=== PATIENT | male | born 1965 | race Caucasian/White ===

== ENCOUNTER 2016-12-26 16:12 | Inpatient (IN) | payer OTHER ==
[2016-12-26] VITALS (7 sets, daily range): BP systolic 131–170; BP diastolic 71–88; PULSE 70–96; RESP 18; TEMP 98–98.4; O2SAT 97–100
[~2016-12-26] VITALS: Ht 177.8 cm; Wt 85.0 kg
--- NOTE | 2016-12-26 16:26 | PD ---
HPI Chief Complaint: Abnormal Results Time Seen by Provider: 16:21 Travel History International Travel<30 days: No Contact w/Intl Traveler<30days: No Traveled to known affect area: No History of Present Illness HPI The patient is a 51-year-old male who presents to the emergency department from [facility], [place] for elevated potassium. The patient states he was recently discharged from [facility] to [facility] [place] secondary to a court order that his had instituted, secondary to him taking one of her morphine tablets. The patient has been at [facility], [place] when they performed laboratory evaluation and noted his potassium is 5.9 and his creatinine was 2.8. The patient does have a history of diabetes, is unsure if he has any history of underlying kidney disorder, does take medications including losartan, amlodipine, and Depakote. The patient denies any current cramping, myalgias, arthralgias, nausea, vomiting, or abdominal pain. The patient states [facility], [place] has discharged him. The patient states his last admission in [place] was for not feeling well. The patient states his creatinine was elevated greater than 3, his baseline, and almost reach 4.0. The patient states they were contemplating dialysis at that time. The patient does have a history of chronic kidney disease. The patient was discharged from [facility] to [facility] [place]. PFSH Past Medical History Narrative Medical Hypertension, diabetes, bipolar affective disorder, chronic kidney disease Past Surgical History Narrative Surgical Ankle surgery, eye surgery Social History Tobacco Use: Yes Substance Use: Yes (marijuana use) Allergies-Medications (Allergen,Severity, Reaction): Coded Allergies: No Known Allergies (Unverified , 12/26/16) Reported Meds & Prescriptions Reported Meds & Active Scripts Active Reported Lorazepam 1 Mg Tab 1 Mg PO Q8H PRN Gabapentin 600 Mg Tab 600 Mg PO TID Trazodone (Trazodone HCl) 300 Mg Tab 300 Mg PO HS Divalproex ER (Divalproex Sodium) 500 Mg Tab 500 Mg PO DAILY Losartan (Losartan Potassium) 25 Mg Tab 25 Mg PO DAILY Bupropion HCl 100 Mg Tab 100 Mg PO BID Review of Systems Except as stated in HPI: all other systems reviewed are Neg General / Constitutional: No: Fever HENT: No: Lightheadedness Cardiovascular: No: Chest Pain or Discomfort Respiratory: No: Shortness of Breath Gastrointestinal: No: Nausea, Vomiting, Abdominal Pain Genitourinary: No: Dysuria, Decreased Urinary Output Musculoskeletal: No: Myalgias, Arthralgias, Weakness Neurologic: No: Dizziness Physical Exam Narrative GENERAL: Awake, alert, pleasant 51-year-old male who appears his stated age and is in no acute respiratory distress. SKIN: Focused skin assessment warm/dry. HEAD: Atraumatic. Normocephalic. EYES: Pupils equal and round. No scleral icterus. No injection or drainage. ENT: No nasal bleeding or discharge. Mucous membranes pink and moist. NECK: Trachea midline. No JVD. CARDIOVASCULAR: Regular rate and rhythm. No murmur appreciated. RESPIRATORY: No accessory muscle use. Clear to auscultation. Breath sounds equal bilaterally. GASTROINTESTINAL: Abdomen soft, non-tender, nondistended. No rebound tenderness. MUSCULOSKELETAL: No obvious deformities. No clubbing. No cyanosis. No edema. NEUROLOGICAL: Awake and alert. No obvious cranial nerve deficits. Motor grossly within normal limits. Normal speech. PSYCHIATRIC: Appropriate mood and affect; insight and judgment normal. Data Data Last Documented VS Vital Signs Date Time Temp Pulse Resp B/P Pulse Ox O2 Delivery O2 Flow Rate FiO2 12/26/16 16:20 98.0 70 18 131/88 100 Orders Electrocardiogram (12/26/16 16:21) Complete Blood Count With Diff (12/26/16 16:21) Comprehensive Metabolic Panel (12/26/16 16:21) Magnesium (Mg) (12/26/16 16:21) Urinalysis - C+S If Indicated (12/26/16 16:21) Ecg Monitoring (12/26/16 16:21) Oximetry (12/26/16 16:21) Sodium Chlor 0.9% 1000 Ml Inj (Ns 1000 M (12/26/16 16:30) Valproic Acid (Depakene) (12/26/16 16:26) Potassium, Serum (K) (12/26/16 20:43) Insulin Human Regular Inj (Novolin R Inj (12/26/16 18:00) Dextrose 50% In Cornelius (Vial) Inj (D50w (Vi (12/26/16 17:45) Sodium Bicarbonate 8.4% Inj (Sodium Bica (12/26/16 17:45) Sodium Polysty Sulfate Liq (Kayexalate L (12/26/16 17:45) Admit Order (Ed Use Only) (12/26/16 18:04) Labs Laboratory Tests Test 12/26/16 16:50 White Blood Count 5.0 TH/MM3 Red Blood Count 2.67 MIL/MM3 Hemoglobin 8.4 GM/DL Hematocrit 24.4 % Mean Corpuscular Volume 91.6 FL Mean Corpuscular Hemoglobin 31.4 PG Mean Corpuscular Hemoglobin 34.2 % Concent Red Cell Distribution Width 15.1 % Platelet Count 206 TH/MM3 Mean Platelet Volume 8.0 FL Neutrophils (%) (Auto) 59.3 % Lymphocytes (%) (Auto) 25.8 % Monocytes (%) (Auto) 11.3 % Eosinophils (%) (Auto) 3.0 % Basophils (%) (Auto) 0.6 % Neutrophils # (Auto) 2.9 TH/MM3 Lymphocytes # (Auto) 1.3 TH/MM3 Monocytes # (Auto) 0.6 TH/MM3 Eosinophils # (Auto) 0.2 TH/MM3 Basophils # (Auto) 0.0 TH/MM3 CBC Comment DIFF FINAL Differential Comment Sodium Level 142 MEQ/L Potassium Level 5.8 MEQ/L Chloride Level 112 MEQ/L Carbon Dioxide Level 24.8 MEQ/L Anion Gap 5 MEQ/L Blood Urea Nitrogen 52 MG/DL Creatinine 2.98 MG/DL Estimat Glomerular Filtration 22 ML/MIN Rate Random Glucose 78 MG/DL Calcium Level 7.6 MG/DL Magnesium Level 2.7 MG/DL Total Bilirubin 0.1 MG/DL Aspartate Amino Transf 21 U/L (AST/SGOT) Alanine Aminotransferase 36 U/L (ALT/SGPT) Alkaline Phosphatase 69 U/L Total Protein 5.5 GM/DL Albumin 2.4 GM/DL Valproic Acid (Depakene) Level 22 MCG/ML [facility] Medical Decision Making Medical Screen Exam Complete: Yes Emergency Medical Condition: Yes Medical Record Reviewed: Yes Interpretation(s) EKG reveals sinus rhythm with a rate of 71. Q wave noted in lead 3 and aVF. Elevated T waves noted in V2 and V3, not seen in V4/V5. Laboratory Tests Test 12/26/16 16:50 White Blood Count 5.0 TH/MM3 Red Blood Count 2.67 MIL/MM3 Hemoglobin 8.4 GM/DL Hematocrit 24.4 % Mean Corpuscular Volume 91.6 FL Mean Corpuscular Hemoglobin 31.4 PG Mean Corpuscular Hemoglobin 34.2 % Concent Red Cell Distribution Width 15.1 % Platelet Count 206 TH/MM3 Mean Platelet Volume 8.0 FL Neutrophils (%) (Auto) 59.3 % Lymphocytes (%) (Auto) 25.8 % Monocytes (%) (Auto) 11.3 % Eosinophils (%) (Auto) 3.0 % Basophils (%) (Auto) 0.6 % Neutrophils # (Auto) 2.9 TH/MM3 Lymphocytes # (Auto) 1.3 TH/MM3 Monocytes # (Auto) 0.6 TH/MM3 Eosinophils # (Auto) 0.2 TH/MM3 Basophils # (Auto) 0.0 TH/MM3 CBC Comment DIFF FINAL Differential Comment Sodium Level 142 MEQ/L Potassium Level 5.8 MEQ/L Chloride Level 112 MEQ/L Carbon Dioxide Level 24.8 MEQ/L Anion Gap 5 MEQ/L Blood Urea Nitrogen 52 MG/DL Creatinine 2.98 MG/DL Estimat Glomerular Filtration 22 ML/MIN Rate Random Glucose 78 MG/DL Calcium Level 7.6 MG/DL Magnesium Level 2.7 MG/DL Total Bilirubin 0.1 MG/DL Aspartate Amino Transf 21 U/L (AST/SGOT) Alanine Aminotransferase 36 U/L (ALT/SGPT) Alkaline Phosphatase 69 U/L Total Protein 5.5 GM/DL Albumin 2.4 GM/DL Valproic Acid (Depakene) Level 22 MCG/ML Differential Diagnosis Differential diagnosis includes hyperkalemia, lab error with hemolysis, acute kidney injury, acute renal failure, obstructive uropathy, medication side effect. Narrative Course IV was established, labs are drawn and sent, and the patient was placed on cardiac telemetry monitoring and continuous pulse oximetry monitoring. EKG was ordered and interpreted. The patient was administered 1 L of IV fluids. The patient's potassium was elevated at 5.8, no evidence of hemolysis. Creatinine is elevated at 2.98, appears to be baseline. The patient was administered insulin, D50, bicarbonate, and Kayexalate. The patient will need 23 hour observation for reevaluation of the potassium in the morning and may need his losartan changed. The patient is on losartan for kidney protection, however, now has recurrent hyperkalemia. The patient will be 23 hour observation [facility]. Physician Communication Physician Communication [facility] hour observation. I discussed the patient with Dr. Blankenship who agrees with 23 hour observation. Diagnosis Primary Impression: Hyperkalemia Additional Impression: Chronic kidney disease Qualified Code: N18.4 - Stage 4 chronic kidney disease Admitting Information Admitting Physician Requests: Observation Condition: Stable Chino Guzman MD December 26, 2016 16:26
[2016-12-26] MEDS ORDERED: SODIUM CHLOR 0.9% 1000 ML INJ 1,000 ML IV ONE (16:30)
[2016-12-26 17:07] LABS: AUTOMATED NEUTROPHIL # 2.9 TH/MM3 (1.8-7.7); BASOPHIL % 0.6 % (0.0-2.0); EOSINOPHIL # 0.2 TH/MM3 (0-0.4); HEMATOCRIT 24.4 % (39.0-51.0); HEMO FLAGS DIFF FINAL; LYMPH % 25.8 % (9.0-44.0); LYMPHOCYTE # 1.3 TH/MM3 (1.0-4.8); MEAN CELL VOLUME 91.6 FL (80.0-100.0); MEAN CORPUSCULAR HEMOGLOBIN 31.4 PG (27.0-34.0); MEAN CORPUSCULAR HGB CONC 34.2 % (32.0-36.0); MONO % 11.3 % (0.0-8.0); NEUT % 59.3 % (16.0-70.0); PLATELET COUNT 206 TH/MM3 (150-450); RED BLOOD COUNT 2.67 MIL/MM3 (4.50-5.90); RED CELL DISTRIBUTION WIDTH 15.1 % (11.6-17.2)
[2016-12-26] MEDS ORDERED: TRAZ300T2 PO (17:19)
[2016-12-26] MEDS ORDERED: LOSA25TA PO (17:19)
[2016-12-26] MEDS ORDERED: DIVA500T3 PO (17:19)
[2016-12-26] MEDS ORDERED: BUPR100T4 PO (17:19)
[2016-12-26] MEDS ORDERED: GABA600T PO (17:19)
[2016-12-26] MEDS ORDERED: LORA1TAB12 PO (17:19)
[2016-12-26 17:33] LABS: ANION GAP 5 MEQ/L (5-15); AST (GOT) 21 U/L (15-37); BICARBONATE 24.8 MEQ/L (21.0-32.0); BLOOD UREA NITROGEN 52 MG/DL (7-18); CHLORIDE 112 MEQ/L (98-107); GLOMERULAR FILTRATION RATE 22 ML/MIN (>89); MAGNESIUM 2.7 MG/DL (1.5-2.5); POTASSIUM 5.8 MEQ/L (3.5-5.1); SODIUM (NA) 142 MEQ/L (136-145)
[2016-12-26 17:37] LABS: ALKALINE PHOSPHATASE 69 U/L (45-117); ALT (GPT) 36 U/L (12-78); TOTAL BILIRUBIN ADULT 0.1 MG/DL (0.2-1.0)
[2016-12-26] MEDS ORDERED: DEXTROSE 50% IN WATER 50 ML VIAL(D50) IV PUSH ONE (17:45)
[2016-12-26] MEDS ORDERED: SODIUM BICARBONATE 8.4% SOLN 50 MEQ/50 ML VIAL SLOW IVP ONE (17:45)
[2016-12-26] MEDS ORDERED: SODIUM POLYSTYRENE SULFONATE SUSP 15 GM/60 ML CUP PO ONE (17:45)
[2016-12-26] MEDS ORDERED: INSULIN HUMAN REGULAR 1,000 UNITS/10 ML VIAL IV PUSH ONE (18:00)
[2016-12-26] MEDS ORDERED: SODIUM BICARBONATE 8.4% INJ 50 MEQ/50 ML SYR IV PUSH ONE (18:30)
[2016-12-26 18:34] LABS: BACTERIA, URINE OCC /hpf; BLOOD, URINE NEG (NEG); COMMENT (UR) CULT NOT INDICATED; CULTURE IF INDICATED CULT NOT INDICATED; GLUCOSE,URINE NEG (NEG); KETONE, URINE NEG (NEG); NITRITE,URINE NEG (NEG); PH, URINE 5.5 (5.0-8.5); SQUAMOUS EPITHELIAL CELL URINE <1 /hpf (0-5); URINE COLOR YELLOW (YELLW/STRAW)
[2016-12-26] MEDS ORDERED: SODIUM CHLOR 0.9% 1000 ML INJ 1,000 ML IV SCH (19:33)
[2016-12-26] MEDS ORDERED: NALOXONE HCL 0.4 MG/ML AMP IV PRN (19:45)
[2016-12-26] MEDS ORDERED: SODIUM CHLORIDE 0.9% FLUSH 10 ML FLUSH IV FLUSH PRN (19:45)
[2016-12-26] MEDS ORDERED: ONDANSETRON HCL 4 MG/2 ML VIAL IVP PRN (19:45)
--- NOTE | 2016-12-26 20:55 | HHI.HP ---
[facility] Primary Care Physician [facility] Admission Diagnosis hyperkalemia, chronic kidney disease Diagnoses: Chief Complaint: hyperkalemia Travel History International Travel<30 Days: No Contact w/Intl Traveler <30 Da: No Traveled to Known Affected Are: No History of Present Illness The patient is a 51-year-old male with a past medical history which includes hypertension, diabetes mellitus, bipolar with depression. Patient is on Depakote as well as gabapentin reports he takes these for his bipolar not for seizure disorder. Patient presents to the emergency department today from [facility] for evaluation of elevated potassium and elevated creatine. Patient reports he was recently discharged from [facility] to [facility] secondary to a court order that his had instituted, secondary to him taking one of her morphine tablets. The patient has been at [facility] when they performed laboratory evaluation and noted his elevated potassium and creatinine. Patient reports while he was in the hospital possibly 2 weeks ago they, "almost," had to start dialysis secondary to Anuria x 2 days. Patient reports he was first told that he had, "kidney issues," 6 months to a year ago. Patient also reports bilateral lower extremity edema for the past 6 months. Patient reports he has not been followed by an outpatient commutator operator. Patient reports he see a PCP through the [facility] in [place] does not recall the name. Only new medications reported are Wellbutrin and Xanax. The patient denies any current cramping, myalgias, arthralgias, nausea, vomiting, abdominal pain palpitations, chest pain or shortness of breath. EKG reviewed and reveals sinus rhythm 71 bpm. Initial laboratory data reviewed potassium 5.8 BUN 52 creatinine 2.98, estimated GFR 22, hemoglobin 8.4 with hematocrit 24.4 Review of Systems ROS Limitations: Poor Historian Except as stated in HPI: all other systems reviewed are Neg Past Family Social History Past Medical History HTN, DM, Bipolar with depression Past Surgical History Left Elbow and right foot, and bilateral cataract surgery Reported Medications Lorazepam 1 Mg Tab 1 Mg PO Q8H PRN Gabapentin 600 Mg Tab 600 Mg PO TID Trazodone (Trazodone HCl) 300 Mg Tab 300 Mg PO HS Divalproex ER (Divalproex Sodium) 500 Mg Tab 500 Mg PO DAILY Losartan (Losartan Potassium) 25 Mg Tab 25 Mg PO DAILY Bupropion HCl 100 Mg Tab 100 Mg PO BID Allergies: Coded Allergies: No Known Allergies (Unverified , 12/26/16) Active Ordered Medications Current Medications Medications (Trade) Dose Ordered Sig/Kesha Route Start Time Stop Time Status Last Admin (NS 1000 ml Inj) 1,000 ml @ 100 mls/hr Q10H IV 12/26/16 19:33 12/27/16 05:32 12/26/16 21:29 (NS Flush) 2 ml UNSCH PRN IV FLUSH 12/26/16 19:45 (NS Flush) 2 ml BID IV FLUSH 12/26/16 21:00 12/26/16 21:29 (Tylenol) 650 mg Q4H PRN PO 12/26/16 19:45 (Zofran Inj) 4 mg Q6H PRN IVP 12/26/16 19:45 (Narcan Inj) 0.4 mg UNSCH PRN IV 12/26/16 19:45 (Wellbutrin) 100 mg BID PO 12/26/16 21:00 12/26/16 21:29 (Depakote Er) 500 mg DAILY PO 12/27/16 09:00 (Neurontin) 600 mg TID PO 12/27/16 09:00 (Ativan) 1 mg Q8H PRN PO 12/26/16 20:45 (Desyrel) 300 mg HS PO 12/26/16 21:00 12/26/16 21:29 (D50w (Vial) Inj) 25 ml UNSCH PRN IV PUSH 12/26/16 21:00 (Glucagon Inj) 1 mg UNSCH PRN OTHER 12/26/16 21:00 Family History Patient reports he is adopted and does not know family medical history Social History ETOH- denies tobacco smoked 1 PPD since age 28- quit 10 days ago Marijuana, denies other illicit drug use Physical Exam Vital Signs Vital Signs Date Time Temp Pulse Resp B/P Pulse Ox O2 Delivery O2 Flow Rate FiO2 12/26/16 19:02 81 18 169/84 100 Room Air 12/26/16 18:46 77 18 170/71 98 12/26/16 18:39 97 12/26/16 16:20 98.0 70 18 131/88 100 Physical Exam GENERAL: This is a well-nourished, well-developed patient. SKIN: Sole of right foot dry wound a quarter size scabbed HEAD: Atraumatic. Normocephalic. No temporal or scalp tenderness. EYES: Extraocular motions intact. No scleral icterus. No injection or drainage. CARDIOVASCULAR: Regular rate and rhythm without murmurs, gallops, or rubs. RESPIRATORY: Clear to auscultation. Breath sounds equal bilaterally. No wheezes , rales, or rhonchi. GASTROINTESTINAL: Abdomen soft, non-tender, nondistended. No guarding. MUSCULOSKELETAL: Trace bilateral lower extremity edema No joint tenderness, effusion, or edema noted. No calf tenderness. Negative Homans sign bilaterally. NEUROLOGICAL: Awake and alert. Motor and sensory grossly within normal limits. Five out of 5 muscle strength in all muscle groups. Normal speech. Laboratory Laboratory Tests Test 12/26/16 12/26/16 16:50 18:00 White Blood Count 5.0 Red Blood Count 2.67 Hemoglobin 8.4 Hematocrit 24.4 Mean Corpuscular Volume 91.6 Mean Corpuscular Hemoglobin 31.4 Mean Corpuscular Hemoglobin 34.2 Concent Red Cell Distribution Width 15.1 Platelet Count 206 Mean Platelet Volume 8.0 Neutrophils (%) (Auto) 59.3 Lymphocytes (%) (Auto) 25.8 Monocytes (%) (Auto) 11.3 Eosinophils (%) (Auto) 3.0 Basophils (%) (Auto) 0.6 Neutrophils # (Auto) 2.9 Lymphocytes # (Auto) 1.3 Monocytes # (Auto) 0.6 Eosinophils # (Auto) 0.2 Basophils # (Auto) 0.0 CBC Comment DIFF FINAL Differential Comment Sodium Level 142 Potassium Level 5.8 Chloride Level 112 Carbon Dioxide Level 24.8 Anion Gap 5 Blood Urea Nitrogen 52 Creatinine 2.98 Estimat Glomerular Filtration 22 Rate Random Glucose 78 Calcium Level 7.6 Magnesium Level 2.7 Total Bilirubin 0.1 Aspartate Amino Transf 21 (AST/SGOT) Alanine Aminotransferase 36 (ALT/SGPT) Alkaline Phosphatase 69 Total Protein 5.5 Albumin 2.4 Valproic Acid (Depakene) Level 22 Urine Color YELLOW Urine Turbidity CLEAR Urine pH 5.5 Urine Specific Jerome 1.015 Urine Protein 100 Urine Glucose (UA) NEG Urine Ketones NEG Urine Occult Blood NEG Urine Nitrite NEG Urine Bilirubin NEG Urine Urobilinogen LESS THAN 2.0 Urine Leukocyte Esterase NEG Urine RBC LESS THAN 1 Urine WBC 2 Urine Squamous Epithelial <1 Cells Urine Bacteria OCC Microscopic Urinalysis Comment CULT NOT INDICATED Result Diagram: 12/26/16 1650 12/26/16 1650 Assessment and Plan Problem List: (1) Hyperkalemia ICD Code: E87.5 Status: Acute Assessment and Plan The patient is a 51-year-old male with a past medical history which includes hypertension, diabetes mellitus, bipolar with depression. Patient is on Depakote as well as gabapentin reports he takes these for his bipolar not for seizure disorder. Patient presents to the emergency department today from [facility] for evaluation of elevated potassium and elevated creatine. Patient reports while he was in the hospital possibly 2 weeks ago they , "almost," had to start dialysis secondary to Anuria x 2 days. Patient reports he was first told that he had, "kidney issues," 6 months to a year ago. Initial laboratory data reviewed potassium 5.8 BUN 52 creatinine 2.98, estimated GFR 22, hemoglobin 8.4 with hematocrit 24.4 Acute kidney injury versus chronic kidney disease Normal saline at 100 cc/h 1 L Recheck BMP in a.m. Consult nephrology patient does not follow with outpatient commutator operator Renal ultrasound ordered and pending Hyperkalemia Patient given sodium bicarbonate, insulin as well as Kayexalate emergency department Recheck potassium pending Hypertension Hold losartan in light of kidney function Monitor blood pressure trend Bipolar continue home medication including divalproex, gabapentin, trazodone and bupropion Diabetes mellitus Start Accu-Cheks before meals at bedtime with low-dose sliding scale insulin coverage DVT prophylaxis with heparin and SCDs Discussed with ER provider, nursing and patient Written by Susy Gonsalez, acting as scribe for Dr. Siddiqi on 12/26/16 at 22 :31. Susy Gonsalez December 26, 2016 20:55
[2016-12-26] MEDS ORDERED: DEXTROSE 50% IN WATER 50 ML VIAL(D50) IV PUSH PRN (21:00)
[2016-12-26] MEDS ORDERED: GLUCAGON 1 MG/ML VIAL OTHER PRN (21:00)
[2016-12-26] MEDS: INSULIN ASPART SUPPLEMENTAL SCALE SQ SCH (21:00)
[2016-12-26] MEDS: buPROPion HCL 100 MG TAB PO SCH (21:29)
[2016-12-26] MEDS: SODIUM CHLORIDE 0.9% FLUSH 10 ML FLUSH IV FLUSH SCH (21:29)
[2016-12-26] MEDS: traZODone HCL 100 MG TAB PO SCH (21:29)
--- NOTE | 2016-12-26 23:44 | RADRPT ---
EXAM DATE/TIME: 12/26/2016 23:09 [facility] COMPARISON: No previous studies available for comparison. INDICATIONS : Increased BUN/Creatinine. MEDICAL HISTORY : Hypercholesterolemia. Hypertension. Asthma. Sleep apnea. Diabetes. Depression. Anxiety. SURGICAL HISTORY : Left ankle surgery. Left elbow surgery. Bilateral cataract removal. ENCOUNTER: Initial ACUITY: 1 day PAIN SCORE: 4/10 LOCATION: Bilateral flank MEASUREMENTS: RIGHT KIDNEY: 12.6 x 6.8 x 6.0 cm LEFT KIDNEY: 13.5 x 6.1 x 5.4 cm FINDINGS: RIGHT KIDNEY: Renal cortex is normal in thickness and echotexture. No hydronephrosis, stone, or mass. LEFT KIDNEY: Renal cortex is normal in thickness and echotexture. No hydronephrosis, stone, or mass. BLADDER: Within normal limits given the degree of distension. CONCLUSION: Normal examination. Eddie Salguero Jr., MD on December 26, 2016 at 23:42 Board Certified Radiologist. This report was verified electronically.
[2016-12-27] VITALS (9 sets, daily range): BP systolic 119–177; BP diastolic 59–83; PULSE 70–96; RESP 18–20; TEMP 97.9–99; O2SAT 95–100
[2016-12-27] MEDS: INSULIN ASPART SUPPLEMENTAL SCALE SQ SCH ×4 (06:14→20:59)
[2016-12-27 07:04] LABS: AUTOMATED NEUTROPHIL # 3.8 TH/MM3 (1.8-7.7); BASOPHIL % 0.3 % (0.0-2.0); EOSINOPHIL # 0.1 TH/MM3 (0-0.4); EOSINOPHIL % 1.8 % (0.0-4.0); HEMATOCRIT 22.1 % (39.0-51.0); HEMO FLAGS DIFF FINAL; LYMPH % 19.7 % (9.0-44.0); LYMPHOCYTE # 1.1 TH/MM3 (1.0-4.8); MEAN CELL VOLUME 89.9 FL (80.0-100.0); MEAN CORPUSCULAR HEMOGLOBIN 30.7 PG (27.0-34.0); MEAN CORPUSCULAR HGB CONC 34.1 % (32.0-36.0); MONO % 9.1 % (0.0-8.0); NEUT % 69.1 % (16.0-70.0); PLATELET COUNT 178 TH/MM3 (150-450); RED BLOOD COUNT 2.46 MIL/MM3 (4.50-5.90); RED CELL DISTRIBUTION WIDTH 14.4 % (11.6-17.2); WHITE BLOOD COUNT 5.6 TH/MM3 (4.0-11.0)
[2016-12-27 07:40] LABS: BICARBONATE 24.2 MEQ/L (21.0-32.0); POTASSIUM 5.2 MEQ/L (3.5-5.1)
[2016-12-27] MEDS ORDERED: SODIUM POLYSTYRENE SULFONATE SUSP 15 GM/60 ML CUP PO ONE (09:45)
[2016-12-27] MEDS: DIVALPROEX SODIUM E.R. 500 MG TAB PO SCH (10:35)
[2016-12-27] MEDS: SODIUM CHLORIDE 0.9% FLUSH 10 ML FLUSH IV FLUSH SCH ×2 (10:35→20:54)
[2016-12-27] MEDS: GABAPENTIN 300 MG CAP PO SCH ×3 (10:35→20:54)
[2016-12-27] MEDS: buPROPion HCL 100 MG TAB PO SCH ×2 (10:35→20:54)
[2016-12-27] MEDS: LORazepam 1 MG TAB PO PRN (10:45)
--- NOTE | 2016-12-27 11:14 | HHI.PR ---
Subjective Remarks Follow-up for hyperkalemia. Patient complaining of his chronic tremors that he had for over a year. He stated that tremors are worsened with stress. He said that sometimes is difficult for him to eat because of tremors. Patient denies any visual changes, headache, or any focal neurological deficits. Patient has good urine output. Denies any chest pain, shortness of breathing, or palpitations. Objective Vitals Vital Signs Date Time Temp Pulse Resp B/P Pulse Ox O2 Delivery O2 Flow Rate FiO2 12/27/16 11:03 98.5 86 18 160/77 97 12/27/16 07:29 98.8 89 18 177/83 98 12/27/16 07:09 99 21 12/27/16 03:59 98.7 92 18 172/80 99 12/26/16 22:17 96 12/26/16 21:53 98.4 78 18 147/78 97 12/26/16 20:00 100 12/26/16 19:02 81 18 169/84 100 Room Air 12/26/16 18:46 77 18 170/71 98 12/26/16 18:39 97 12/26/16 16:20 98.0 70 18 131/88 100 I/O 12/26/16 12/26/16 12/26/16 12/27/16 12/27/16 12/27/16 07:00 15:00 23:00 07:00 15:00 23:00 Intake Total 902 ml 200 ml Output Total 500 ml 1300 ml Balance 402 ml -1100 ml Intake Oral 602 ml IV Total 300 ml 200 ml Output Urine Total 500 ml 1300 ml # Voids 1 2 Result Diagram: 12/27/16 0608 12/27/16 0608 Objective Remarks GENERAL: in NAD CARDIOVASCULAR: Regular rate and rhythm without murmurs, gallops, or rubs. RESPIRATORY: Breath sounds equal bilaterally. No accessory muscle use. GASTROINTESTINAL: Abdomen soft, non-tender, nondistended. MUSCULOSKELETAL: No cyanosis, or edema. BACK: Nontender without obvious deformity. No CVA tenderness. Medications and IVs Current Medications Sodium Chloride (NS 1000 ml Inj) 1,000 ml @ 999 mls/hr BOLUS ONCE IV Last administered on 12/26/16t 17:00; Start 12/26/16 at 16:30; Stop 12/26/16 at 17:30; Status DC Insulin Human Regular (NovoLIN R INJ) 10 units ONCE ONCE IV PUSH Last administered on 12/26/16 18:28; Start 12/26/16 at 18:00; Stop 12/26/16 at 18:01; Status DC Dextrose (D50w (Vial) Inj) 50 ml ONCE ONCE IV PUSH Last administered on 18:24; Start 12/26/16 at 17:45; Stop 12/26/16 at 17:46; Status DC Sodium Bicarbonate (Sodium Bicarbonate 8.4% Inj) 50 meq ONCE ONCE SLOW IVP ; Start 12/26/16 at 17:45; Stop 12/26/16 at 17:46; Status DC Sodium Polystyrene Sulfonate (Kayexalate Liq) 15 gm ONCE ONCE PO Last administered on 12/26/16 18:33; Start 12/26/16 at 17:45; Stop 12/26/16 at 17:46; Status DC Sodium Bicarbonate 50 meq 50 meq ONCE ONCE IV PUSH Last administered on 18:34; Start 12/26/16 at 18:30; Stop 12/26/16 at 18:31; Status DC Sodium Chloride (NS 1000 ml Inj) 1,000 ml @ 100 mls/hr Q10H IV Last administered on 12/26/16 21:29; Start 12/26/16 at 19:33; Stop 12/27/16 at 05:32; Status DC Sodium Chloride (NS Flush) 2 ml UNSCH PRN IV FLUSH FLUSH AFTER USING IV ACCESS ; Start 12/26/16 at 19:45 Sodium Chloride (NS Flush) 2 ml BID IV FLUSH Last administered on 12/27/16 10: 35; Start 12/26/16 at 21:00 Acetaminophen (Tylenol) 650 mg Q4H PRN PO TEMP > 100.4; Start 12/26/16 at 19:45 Ondansetron HCl (Zofran Inj) 4 mg Q6H PRN IVP NAUSEA OR VOMITING; Start at 19:45 Naloxone HCl (Narcan Inj) 0.4 mg UNSCH PRN IV SEE LABEL COMMENTS; Start at 19:45 Bupropion HCl (Wellbutrin) 100 mg BID PO Last administered on 12/27/16 10:35; Start 12/26/16 at 21:00 Divalproex Sodium (Depakote Er) 500 mg DAILY PO Last administered on 12/27/16 10:35; Start 12/27/16 at 09:00 Gabapentin (Neurontin) 600 mg TID PO Last administered on 12/27/16 10:35; Start 12/27/16 at 09:00 Lorazepam (Ativan) 1 mg Q8H PRN PO ANXIETY Last administered on 12/27/16 10:45 ; Start 12/26/16 at 20:45 Trazodone HCl (Desyrel) 300 mg HS PO Last administered on 12/26/16 21:29; Start 12/26/16 at 21:00 Dextrose (D50w (Vial) Inj) 25 ml UNSCH PRN IV PUSH HYPOGLYCEMIA-SEE COMMENTS; Start 12/26/16 at 21:00 Glucagon (Glucagon Inj) 1 mg UNSCH PRN OTHER HYPOGLYCEMIA-SEE COMMENTS; Start 12/26/16 at 21:00 Insulin Aspart (NovoLOG SUPPLEMENTAL SCALE) 1 ACHS SLIDING SCALE SQ ; Start 12/26/16 at 21:00 Sodium Polystyrene Sulfonate (Kayexalate Liq) 15 gm ONCE ONCE PO Last administered on 12/27/16 10:34; Start 12/27/16 at 09:45; Stop 12/27/16 at 09:46; Status DC A/P Problem List: (1) Hyperkalemia ICD Code: E87.5 Status: Acute Assessment and Plan The patient is a 51-year-old male with a past medical history which includes hypertension, diabetes mellitus, bipolar with depression. Patient is on Depakote as well as gabapentin reports he takes these for his bipolar not for seizure disorder. Patient presents to the emergency department today from [facility] for evaluation of elevated potassium and elevated creatine. Patient reports while he was in the hospital possibly 2 weeks ago they , "almost," had to start dialysis secondary to Anuria x 2 days. Patient reports he was first told that he had, "kidney issues," 6 months to a year ago. Initial laboratory data reviewed potassium 5.8 BUN 52 creatinine 2.98, estimated GFR 22, hemoglobin 8.4 with hematocrit 24.4 Acute kidney injury versus chronic kidney disease -Patient was given normal saline at 100 cc/h. Creatinine/GFR improved. -Computer Networking Instructor Adjunct consulted. Pending recommendations. -Avoid nephrotoxins. Hyperkalemia -s/p sodium bicarbonate, insulin as well as Kayexalate emergency department and potassium improved to 5.2. -No events over telemetry. Will give another dose of Kayexalate pending recommendations from piano maker. -Patient will need a low potassium diet. Hypertension -Losartan was held secondary to kidney disease. -His blood pressure is elevated so will start amlodipine. Bipolar -continue home medication including divalproex, gabapentin, trazodone and bupropion Diabetes mellitus -Currently on insulin sliding scale. Chronic tremors -Most likely secondary to benign familial essential tremors. -Patient total follow up with his PCP for further evaluation. This has been chronic for 1 year and there are no acute issues at the moment. DVT prophylaxis with heparin and SCDs Discharge Planning Pending recommendations from piano maker. Maggie Blankenship MD December 27, 2016 11:14
[2016-12-27] MEDS ORDERED: TRAZ100T4 PO (11:39)
--- NOTE | 2016-12-27 14:06 | PD.CONS ---
[facility] Service Nephrology Consult Requested By Makayla Gonsalez Reason for Consult Acute on Chronic Renal Decline Primary Care Physician [facility] History of Present Illness The patient is a 51 yo [place] male who was sent by 12/26/16 after labs showed an elevated K+ at 5.8 and SCr at 2.98. The patient was Tapia Acted recently by his after she found that he was taking her prescribed Morphine. He is a questionable historian, but says that he was recently admitted at [facility] in [place] for "falling out" and was told at that time that his kidney functions were so impaired that he may have to require dialysis. Prior to this, says [facility] have [facility] insufficiency about 6 months ago, but is uncertain of his baseline status. Is a type 1 diabetic and admits that he is not compliant. Has had complications from his diabetes including retinopathy and neuropathy. Is unaware of any hx of proteinuria. He is also hypertensive for many years. Denies any hx of collagen vascular disease, urological obstructions, prostatic issues. He mentions he had an AR some time ago, but no known CHF hx. In the past 2 weeks, was started on Bupropion and Xanax by [facility]. Has been on Gabapentin, Depakote, and Losartan for the past 6 months or so. Keeps saying he is "falling out" but is unable to elaborate what that means besides saying he is tremoring in his R hand with sporadic jerking movements. Denies any NVDC. No NSAID use. No urinary issues. Admitting SCr 2.98 that improved to 2.44 at consult. K+ was 5.8 that improved to 5.2. Alb of 2.4 with 1+ proteinuria on UA. Hgb at 7.5. Renal US shows normal echogenicity without hydro or obstruction. UOP at 1800mL Labs predating admission not available to me at the present. 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 HTN CAD s/p AR Bipolar Disorder Depression Hx of MRSA infection Past Surgical History L elbow MRSA debridement R foot same Cataract repair Potential retinal laser treatment Reported Medications Reported Meds & Active Scripts Active Reported Lorazepam 1 Mg Tab 1 Mg PO Q8H PRN Gabapentin 600 Mg Tab 1,200 Mg PO TID Trazodone (Trazodone HCl) 300 Mg Tab 300 Mg PO HS Divalproex ER (Divalproex Sodium) 500 Mg Tab 500 Mg PO DAILY Losartan (Losartan Potassium) 25 Mg Tab 25 Mg PO DAILY Bupropion HCl 100 Mg Tab 100 Mg PO BID Active Ordered Medications Current Medications Medications (Trade) Dose Ordered Sig/Kesha Route Start Time Stop Time Status Last Admin (NS Flush) 2 ml UNSCH PRN IV FLUSH 12/26/16 19:45 (NS Flush) 2 ml BID IV FLUSH 12/26/16 21:00 12/27/16 10:35 (Tylenol) 650 mg Q4H PRN PO 12/26/16 19:45 (Zofran Inj) 4 mg Q6H PRN IVP 12/26/16 19:45 (Narcan Inj) 0.4 mg UNSCH PRN IV 12/26/16 19:45 (Wellbutrin) 100 mg BID PO 12/26/16 21:00 12/27/16 10:35 (Depakote Er) 500 mg DAILY PO 12/27/16 09:00 12/27/16 10:35 (Neurontin) 600 mg TID PO 12/27/16 09:00 12/27/16 13:19 (Ativan) 1 mg Q8H PRN PO 12/26/16 20:45 12/27/16 10:45 (Desyrel) 300 mg HS PO 12/26/16 21:00 12/26/16 21:29 (D50w (Vial) Inj) 25 ml UNSCH PRN IV PUSH 12/26/16 21:00 (Glucagon Inj) 1 mg UNSCH PRN OTHER 12/26/16 21:00 (Norvasc) 10 mg DAILY PO 12/27/16 11:15 12/27/16 11:36 Family History Is adopted so unknown Social History Denies EtOH Tobacco use of 1ppd (quit 10 days ago) Marijuana use Hx of IVDA of methamphetamines with last use 1 year ago (Anahi Rudolph) Physical Exam Vital Signs Vital Signs Date Time Temp Pulse Resp B/P Pulse Ox O2 Delivery O2 Flow Rate FiO2 12/27/16 11:03 98.5 86 18 160/77 97 12/27/16 07:29 98.8 89 18 177/83 98 12/27/16 07:09 99 21 12/27/16 03:59 98.7 92 18 172/80 99 12/26/16 22:17 96 12/26/16 21:53 98.4 78 18 147/78 97 12/26/16 20:00 100 12/26/16 19:02 81 18 169/84 100 Room Air 12/26/16 18:46 77 18 170/71 98 12/26/16 18:39 97 12/26/16 16:20 98.0 70 18 131/88 100 Physical Exam GENERAL: Sitting up in bed eating food and watching TV. No distress. SKIN: Warm and dry. HEAD: Atraumatic. Normocephalic. EYES: Pupils equal and round. No scleral icterus. No injection or drainage. ENT: No nasal bleeding or discharge. Mucous membranes pink and moist. NECK: Trachea midline. No JVD. CARDIOVASCULAR: Regular rate and rhythm. RESPIRATORY: No accessory muscle use. Clear to auscultation. Breath sounds equal bilaterally. GASTROINTESTINAL: Abdomen soft, non-tender, nondistended. Hepatic and splenic margins not palpable. MUSCULOSKELETAL: Extremities without clubbing, cyanosis, or edema. No obvious deformities. NEUROLOGICAL: Awake and alert. Normal speech. Myoclonic movements in UEs R>L PSYCHIATRIC: Appropriate mood and affect; insight and judgment normal. Laboratory Laboratory Tests Test 12/26/16 12/26/16 12/26/16 12/27/16 16:50 18:00 23:10 06:08 White Blood Count 5.0 5.6 Red Blood Count 2.67 2.46 Hemoglobin 8.4 7.5 Hematocrit 24.4 22.1 Mean Corpuscular Volume 91.6 89.9 Mean Corpuscular Hemoglobin 31.4 30.7 Mean Corpuscular Hemoglobin 34.2 34.1 Concent Red Cell Distribution Width 15.1 14.4 Platelet Count 206 178 Mean Platelet Volume 8.0 8.1 Neutrophils (%) (Auto) 59.3 69.1 Lymphocytes (%) (Auto) 25.8 19.7 Monocytes (%) (Auto) 11.3 9.1 Eosinophils (%) (Auto) 3.0 1.8 Basophils (%) (Auto) 0.6 0.3 Neutrophils # (Auto) 2.9 3.8 Lymphocytes # (Auto) 1.3 1.1 Monocytes # (Auto) 0.6 0.5 Eosinophils # (Auto) 0.2 0.1 Basophils # (Auto) 0.0 0.0 CBC Comment DIFF FINAL DIFF FINAL Differential Comment Sodium Level 142 144 Potassium Level 5.8 5.8 5.2 Chloride Level 112 114 Carbon Dioxide Level 24.8 24.2 Anion Gap 5 6 Blood Urea Nitrogen 52 42 Creatinine 2.98 2.44 Estimat Glomerular Filtration 22 28 Rate Random Glucose 78 140 Calcium Level 7.6 7.6 Magnesium Level 2.7 Total Bilirubin 0.1 Aspartate Amino Transf 21 (AST/SGOT) Alanine Aminotransferase 36 (ALT/SGPT) Alkaline Phosphatase 69 Total Protein 5.5 Albumin 2.4 Valproic Acid (Depakene) Level 22 Urine Color YELLOW Urine Turbidity CLEAR Urine pH 5.5 Urine Specific Vanderbilt 1.015 Urine Protein 100 Urine Glucose (UA) NEG Urine Ketones NEG Urine Occult Blood NEG Urine Nitrite NEG Urine Bilirubin NEG Urine Urobilinogen LESS THAN 2.0 Urine Leukocyte Esterase NEG Urine RBC LESS THAN 1 Urine WBC 2 Urine Squamous Epithelial <1 Cells Urine Bacteria OCC Microscopic Urinalysis Comment CULT NOT INDICATED Test 12/27/16 10:45 Nasal Screen MRSA (PCR) MRSA NOT DETECTED (Anahi Rudolph) Result Diagram: 12/27/16 0608 12/27/16 0608 Imaging Last Impressions Renal Ultrasound 12/26/16 0000 Signed Impressions: Service Date/Time: Monday, December 26, 2016 23:09 - CONCLUSION: Normal examination. Eddie Salguero Jr., MD (Anahi Rudolph) Assessment and Plan Problem List: (1) Acute on chronic renal insufficiency Plan: Baseline renal functions unknown. Labs requested from recent admission at [facility]. Has longstanding diabetes that he has admitted to not being compliant with management, so likely has diabetic nephropathy as well as hypertensive nephrosclerosis. His functions have improved overnight with hydration indicating some degree of dehydration. Uncertain about recent admission to hospital where the patient mentions that dialysis was being considered. To continue on IVF. Check labs: UPCR for proteinuria, serology, hep panel, KATE, complements Renal US normal. Medications should be adjusted for the patient renal decline. Avoid nephrotoxic medications including NSAIDs and iodinated contrast dyes. Avoid gadolinium when eGFR <30. (2) Hyperkalemia Plan: Improved but still elevated. Kionex 15g today. ARB been held. Potentially medication induced versus RICCI versus RTA type 4 from longstanding DM. Monitor. (3) Type 1 diabetes mellitus Plan: Mgmt per primary Has neuropathy for which he states he uses Gabapentin 1200mg TID. As his eGFR is diminished, the maximum recommended dose is 700mg QD which I have adjusted. (4) Hypertension Plan: Losartan held. Started on Norvasc 10mg QD If BP not improving by tomorrow, will adjust regimen. Would continue to hold ACEi and ARBs for the present given acute renal decline and hyperkalemia. (5) Bipolar disorder Plan: Mgmt as per primary Was recently started on Bupropion which according to literature guidelines, dosage should be decreased or another agent considered with CKD. Will defer this to the primary, but may need psych opinion about medication management---if not impatient, then outpatient. (6) Coronary artery disease Plan: As per hx (7) Anemia Plan: Repeat CBC with Fe panel and FOBT (Anahi Rudolph) Assessment and Plan The exam, history, and the medical decision-making described in the above note were completed with the assistance of the PA-C. I reviewed and agree with the findings presented. (Lottie Gentile MD) Anahi Rudolph December 27, 2016 14:06 Lottie Gentile MD December 28, 2016 16:57
[2016-12-27 15:21] LABS: LAMBDA LIGHT CHAIN 107 MG/DL (90-210)
--- NOTE | 2016-12-27 15:25 | EKG ---
Date Performed: 12/26/2016 Time Performed: 17:49:48 PTAGE: 51 years EKG: Sinus rhythm INFERIOR MYOCARDIAL INFARCTION ABNORMAL ECG NO PREVIOUS TRACING DOCTOR: Marco Harris Interpretating Date/Time 12/27/2016 15:23:23
[2016-12-27 15:33] LABS: FERRITIN 95 NG/ML (26-388); IMMUNOGLOBULIN A 183 MG/DL (93-514); IMMUNOGLOBULIN G 614 MG/DL (660-1640); IMMUNOGLOBULIN M 99 MG/DL (40-247); TOTAL PROTEIN SPE 4.6 GM/DL (6.0-7.6); TRANSFERRIN IRON PROFILE 164 MG/DL (200-360)
[2016-12-27 17:00] LABS: BICARBONATE 24.8 MEQ/L (21.0-32.0); MAGNESIUM 2.3 MG/DL (1.5-2.5); POTASSIUM 4.7 MEQ/L (3.5-5.1)
--- NOTE | 2016-12-27 19:01 | EC ---
Study Study Date:12/27/2016 STUDY CONCLUSIONS SUMMARY - Left ventricle: The cavity size was normal. Wall thickness was increased in a pattern of moderate LVH. Systolic function was normal. The estimated ejection fraction was in the range of 60% to 65%. Wall motion was normal; there were no regional wall motion abnormalities. - Aortic valve: Valve area: 2.53cm^2 (Vmax). - Mitral valve: Mild regurgitation. If LV function is below 40, please consider prescribing an ACEI or ARB or document rationale for non-use. PROCEDURE DATA STUDY STATUS: Elective. Procedure: Transthoracic echocardiography. Image quality was good. Scanning was performed from the parasternal, apical, and subcostal acoustic windows. Study completion: The patient tolerated the procedure well. Transthoracic echocardiography. M-mode, complete 2D, complete spectral Doppler, and color Doppler. Height: Height: 70in. Weight: Weight: 186.6lb. Body mass index: BMI: 26.8kg/m^2. Body surface area: BSA: 2.03m^2. Patient status: Inpatient. CARDIAC ANATOMY LEFT VENTRICLE: The cavity size was normal. Wall thickness was increased in a pattern of moderate LVH. Systolic function was normal. The estimated ejection fraction was in the range of 60% to 65%. Wall motion was normal; there were no regional wall motion abnormalities. AORTIC VALVE: Trileaflet; normal thickness leaflets. Doppler: Transvalvular velocity was within the normal range. There was no stenosis. No regurgitation. Valve area: 2.53cm^2 (Vmax). Indexed valve area: 1.25cm^2/m^2 (Vmax). Peak gradient: 11mm Hg (S). AORTA: Aortic root: The aortic root was normal in size. MITRAL VALVE: Structurally normal valve. Doppler: Transvalvular velocity was within the normal range. There was no evidence for stenosis. Mild regurgitation. Valve area by pressure half-time: 4.89cm^2. Indexed valve area by pressure half-time: 2.41cm^2/m^2. Peak gradient: 4mm Hg (D). LEFT ATRIUM: The atrium was normal in size. RIGHT VENTRICLE: The cavity size was normal. Wall thickness was normal. PULMONIC VALVE: Doppler: Transvalvular velocity was within the normal range. There was no evidence for stenosis. No regurgitation. TRICUSPID VALVE: Structurally normal valve. Doppler: Transvalvular velocity was within the normal range. No regurgitation. Peak gradient: 17mm Hg (D). PULMONARY ARTERY: The main pulmonary artery was normal-sized. Systolic pressure was within the normal range. RIGHT ATRIUM: The atrium was normal in size. PERICARDIUM: There was no pericardial effusion. SYSTEMIC VEINS: Inferior vena cava: The vessel was normal in size. Patient weight: 186.6lb _Ejection fraction:_ 65-75% _Fractional shortening:_ 32% up to 5Kg 5-11.5Kg 11.6-22.9Kg 23-45Kg 45-57Kg Aortic Root 7-13 <17 13-22 17-27 17-27 LA diam 6-13 <23 24-38 33-47 37-40 RVID 10-17 7-15 7-15 7-18 8-17 LVIDd 12-22 <32 24-38 33-47 37-40 LVPW 2-4 3-6 5-7 6-8 7-8 IVS 2-4 3-6 5-7 6-8 7-8 BASIC MEASUREMENTS ADULT NORMAL Left ventricle LV internal dimension, ED, chordal *55.7 mm 43-52 level, PLAX LV internal dimension, ES, chordal 36.7 mm 23-38 level, PLAX Fractional shortening, chordal level, 34 % >29 PLAX LV posterior wall thickness, ED 15 mm IVS/LVPW ratio, ED 0.99 <1.3 Ventricular septum Septal thickness, ED 14.8 mm Aortic valve Leaflet separation 23 mm 15-26 Left atrium Anterior-posterior dimension 40 mm Anterior-posterior dimension index 1.97 cm/m^2 <2.2 Right ventricle RV internal dimension, ED, PLAX 22.9 mm 19-38 BASIC MEASUREMENTS ADULT NORMAL Aortic valve Leaflet separation 23 mm 15-26 Aorta Root diameter, ED 36 mm 20-37 DOPPLER MEASUREMENTS ADULT NORMAL Aortic valve Peak velocity, S 164 cm/s Peak gradient, S 11 mm Hg Valve area, Vmax 2.53 cm^2 Valve area index, Vmax 1.25 cm^2/m^2 Mitral valve Peak E-wave velocity 95.3 cm/s Peak A-wave velocity 94.8 cm/s Pressure half-time 45 ms Peak gradient, D 4 mm Hg Peak E/A ratio 1 Valve area, pressure half-time 4.89 cm^2 Valve area index, pressure half-time 2.41 cm^2/m^2 Tricuspid valve Peak gradient, D 17 mm Hg Maximal inflow velocity 204 cm/s Systemic veins Estimated CVP 10 mm Hg Pulmonic valve Peak velocity, S 147 cm/s LEGEND: Mean values are shown as u=mean value. Asterisk (*) pérez values outside specified normal range. Prepared and signed by Misty Gonzales [id number]
[2016-12-27] MEDS: traZODone HCL 100 MG TAB PO SCH (20:54)
[2016-12-28] VITALS (13 sets, daily range): BP systolic 137–217; BP diastolic 70–101; PULSE 89–109; RESP 20–21; TEMP 98.5–99.2; O2SAT 94–99
[2016-12-28 05:40] LABS: HEMATOCRIT 21.2 % (39.0-51.0); MEAN CELL VOLUME 89.7 FL (80.0-100.0); MEAN CORPUSCULAR HEMOGLOBIN 32.1 PG (27.0-34.0); MEAN CORPUSCULAR HGB CONC 35.8 % (32.0-36.0); PLATELET COUNT 176 TH/MM3 (150-450); RED BLOOD COUNT 2.36 MIL/MM3 (4.50-5.90); RED CELL DISTRIBUTION WIDTH 14.7 % (11.6-17.2); REVIEW FLAG FINAL; WHITE BLOOD COUNT 5.3 TH/MM3 (4.0-11.0)
[2016-12-28 06:03] LABS: BICARBONATE 25.9 MEQ/L (21.0-32.0); POTASSIUM 5.3 MEQ/L (3.5-5.1)
[2016-12-28] MEDS: INSULIN ASPART SUPPLEMENTAL SCALE SQ SCH ×4 (06:22→20:00)
[2016-12-28 08:31] LABS: ALBUMIN SPE 2.69 GM/DL (3.50-5.00); ALPHA 1 GLOBULIN 0.12 GM/DL (0.11-0.29); BETA GLOBULINS (SPE) 0.59 GM/DL (0.53-1.03)
[2016-12-28] MEDS ORDERED: SODIUM POLYSTYRENE SULFONATE SUSP 15 GM/60 ML CUP PO ONE (08:45)
[2016-12-28 08:47] LABS: KAPPA LAMBDA RATIO 1.64 (1.57-3.93)
[2016-12-28] MEDS: GABAPENTIN 300 MG CAP PO SCH ×2 (09:24→19:59)
[2016-12-28] MEDS: buPROPion HCL 100 MG TAB PO SCH ×2 (09:24→19:59)
[2016-12-28] MEDS: DIVALPROEX SODIUM E.R. 500 MG TAB PO SCH (09:25)
[2016-12-28] MEDS: SODIUM CHLORIDE 0.9% FLUSH 10 ML FLUSH IV FLUSH SCH ×2 (09:25→19:59)
[2016-12-28] MEDS ORDERED: amLODIPine BESYLATE 5 MG TAB PO SCH (11:00)
--- NOTE | 2016-12-28 11:49 | HHI.PR ---
Subjective Remarks Follow-up for acute on chronic renal failure with hematuria Patient stated that his tremors are better but he is concerned about them. He has to see a neurologist. Patient making good urine output. He denies any abdominal pain. Denies any chest pain, shortness of breathing, palpitation. Objective Vitals Vital Signs Date Time Temp Pulse Resp B/P Pulse Ox O2 Delivery O2 Flow Rate FiO2 12/28/16 11:22 99.2 100 20 200/93 94 12/28/16 09:53 191/91 12/28/16 09:19 217/101 12/28/16 07:30 99.1 93 20 192/91 99 12/28/16 04:14 89 20 137/74 99 12/28/16 00:57 98.6 93 20 158/70 97 12/27/16 20:01 96 12/27/16 19:28 98 12/27/16 19:27 97.9 70 20 119/59 100 12/27/16 19:27 98.0 92 20 166/78 97 12/27/16 16:09 89 12/27/16 14:59 99.0 90 18 143/67 95 I/O 12/27/16 12/27/16 12/27/16 12/28/16 12/28/16 12/28/16 07:00 15:00 23:00 07:00 15:00 23:00 Intake Total 200 ml Output Total 1300 ml 250 ml Balance -1100 ml -250 ml IV Total 200 ml Output Urine Total 1300 ml 250 ml # Voids 2 2 Result Diagram: 12/28/16 0500 12/28/16 0500 Objective Remarks GENERAL: in NAD CARDIOVASCULAR: Regular rate and rhythm without murmurs, gallops, or rubs. RESPIRATORY: Breath sounds equal bilaterally. No accessory muscle use. GASTROINTESTINAL: Abdomen soft, non-tender, nondistended. MUSCULOSKELETAL: No cyanosis, or edema. BACK: Nontender without obvious deformity. No CVA tenderness. Medications and IVs Current Medications Sodium Chloride (NS 1000 ml Inj) 1,000 ml @ 999 mls/hr BOLUS ONCE IV Last administered on 12/26/16t 17:00; Start 12/26/16 at 16:30; Stop 12/26/16 at 17:30; Status DC Insulin Human Regular (NovoLIN R INJ) 10 units ONCE ONCE IV PUSH Last administered on 12/26/16 18:28; Start 12/26/16 at 18:00; Stop 12/26/16 at 18:01; Status DC Dextrose (D50w (Vial) Inj) 50 ml ONCE ONCE IV PUSH Last administered on 18:24; Start 12/26/16 at 17:45; Stop 12/26/16 at 17:46; Status DC Sodium Bicarbonate (Sodium Bicarbonate 8.4% Inj) 50 meq ONCE ONCE SLOW IVP ; Start 12/26/16 at 17:45; Stop 12/26/16 at 17:46; Status DC Sodium Polystyrene Sulfonate (Kayexalate Liq) 15 gm ONCE ONCE PO Last administered on 12/26/16 18:33; Start 12/26/16 at 17:45; Stop 12/26/16 at 17:46; Status DC Sodium Bicarbonate 50 meq 50 meq ONCE ONCE IV PUSH Last administered on 18:34; Start 12/26/16 at 18:30; Stop 12/26/16 at 18:31; Status DC Sodium Chloride (NS 1000 ml Inj) 1,000 ml @ 100 mls/hr Q10H IV Last administered on 12/26/16 21:29; Start 12/26/16 at 19:33; Stop 12/27/16 at 05:32; Status DC Sodium Chloride (NS Flush) 2 ml UNSCH PRN IV FLUSH FLUSH AFTER USING IV ACCESS ; Start 12/26/16 at 19:45 Sodium Chloride (NS Flush) 2 ml BID IV FLUSH Last administered on 12/28/16 09: 25; Start 12/26/16 at 21:00 Acetaminophen (Tylenol) 650 mg Q4H PRN PO TEMP > 100.4; Start 12/26/16 at 19:45 Ondansetron HCl (Zofran Inj) 4 mg Q6H PRN IVP NAUSEA OR VOMITING; Start at 19:45 Naloxone HCl (Narcan Inj) 0.4 mg UNSCH PRN IV SEE LABEL COMMENTS; Start at 19:45 Bupropion HCl (Wellbutrin) 100 mg BID PO Last administered on 12/28/16 09:24; Start 12/26/16 at 21:00 Divalproex Sodium (Depakote Er) 500 mg DAILY PO Last administered on 12/28/16 09:25; Start 12/27/16 at 09:00 Gabapentin (Neurontin) 600 mg TID PO Last administered on 12/27/16 13:19; Start 12/27/16 at 09:00; Stop 12/27/16 at 14:09; Status DC Lorazepam (Ativan) 1 mg Q8H PRN PO ANXIETY Last administered on 12/27/16 10:45 ; Start 12/26/16 at 20:45 Trazodone HCl (Desyrel) 300 mg HS PO Last administered on 12/27/16 20:54; Start 12/26/16 at 21:00 Dextrose (D50w (Vial) Inj) 25 ml UNSCH PRN IV PUSH HYPOGLYCEMIA-SEE COMMENTS; Start 12/26/16 at 21:00 Glucagon (Glucagon Inj) 1 mg UNSCH PRN OTHER HYPOGLYCEMIA-SEE COMMENTS; Start 12/26/16 at 21:00 Insulin Aspart (NovoLOG SUPPLEMENTAL SCALE) 1 ACHS SLIDING SCALE SQ Last administered on 12/27/16 20:59; Start 12/26/16 at 21:00 Sodium Polystyrene Sulfonate (Kayexalate Liq) 15 gm ONCE ONCE PO Last administered on 12/27/16 10:34; Start 12/27/16 at 09:45; Stop 12/27/16 at 09:46; Status DC Amlodipine Besylate (Norvasc) 10 mg DAILY PO Last administered on 12/28/16 09: 24; Start 12/27/16 at 11:15 Gabapentin (Neurontin) 300 mg BID PO Last administered on 12/28/16 09:24; Start 12/27/16 at 21:00 Sodium Polystyrene Sulfonate (Kayexalate Liq) 15 gm ONCE ONCE PO Last administered on 12/28/16 08:45; Start 12/28/16 at 08:45; Stop 12/28/16 at 08:46 ; Status DC Amlodipine Besylate (Norvasc) 5 mg DAILY PO ; Start 12/28/16 at 11:00 A/P Problem List: (1) Hyperkalemia ICD Code: E87.5 Status: Acute Assessment and Plan The patient is a 51-year-old male with a past medical history which includes hypertension, diabetes mellitus, bipolar with depression. Patient is on Depakote as well as gabapentin reports he takes these for his bipolar not for seizure disorder. Patient presents to the emergency department today from [facility] for evaluation of elevated potassium and elevated creatine. Patient reports while he was in the hospital possibly 2 weeks ago they , "almost," had to start dialysis secondary to Anuria x 2 days. Patient reports he was first told that he had, "kidney issues," 6 months to a year ago. Initial laboratory data reviewed potassium 5.8 BUN 52 creatinine 2.98, estimated GFR 22, hemoglobin 8.4 with hematocrit 24.4 Acute kidney injury versus chronic kidney disease -Patient was given normal saline at 100 cc/h. Creatinine/GFR improved. -Glass Curvature Gauger consulted and is doing a workup. -Avoid nephrotoxins. Hyperkalemia -s/p sodium bicarbonate, insulin as well as Kayexalate emergency department and potassium improved to 5.2. -No events over telemetry. Will give another dose of Kayexalate pending recommendations from pension fund manager. -Patient will need a low potassium diet. -Potassium is elevated again today. We'll give another dose of Kayexalate. Hypertension -Losartan was held secondary to kidney disease. -Blood pressure continue to be elevated so start amlodipine. Bipolar -continue home medication including divalproex, gabapentin, trazodone and bupropion Diabetes mellitus -Currently on insulin sliding scale. Chronic tremors -Most likely secondary to benign familial essential tremors. -Will consult neurologist. DVT prophylaxis with heparin and SCDs Discharge Planning Pending recommendations from pension fund manager, he continues to be hyperkalemic so will require continued hospitalization. Maggie Blankenship MD December 28, 2016 11:49
[2016-12-28 14:57] LABS: ANA SCREEN NEG (NEG)
--- NOTE | 2016-12-28 16:45 | HHI.NPPN ---
Subjective History of Present Illness The patient is a 51 yo [place] male who was sent by [facility] 12/26/16 after labs showed an elevated K+ at 5.8 and SCr at 2.98. The patient was Tapia Acted recently by his after she found that he was taking her prescribed Morphine. He is a questionable historian, but says that he was recently admitted at [facility] in [place] for "falling out" and was told at that time that his kidney functions were so impaired that he may have to require dialysis. Prior to this, says [facility] have renal insufficiency about 6 months ago, but is uncertain of his baseline status. Is a type 1 diabetic and admits that he is not compliant. Has had complications from his diabetes including retinopathy and neuropathy. Is unaware of any hx of proteinuria. He is also hypertensive for many years. Denies any hx of collagen vascular disease, urological obstructions, prostatic issues. He mentions he had an MS some time ago, but no known CHF hx. In the past 2 weeks, was started on Bupropion and Xanax by [facility]. Has been on Gabapentin, Depakote, and Losartan for the past 6 months or so. Keeps saying he is "falling out" but is unable to elaborate what that means besides saying he is tremoring in his R hand with sporadic jerking movements. Denies any NVDC. No NSAID use. No urinary issues. Admitting SCr 2.98 that improved to 2.44 at consult. K+ was 5.8 that improved to 5.2. Alb of 2.4 with 1+ proteinuria on UA. Hgb at 7.5. Renal US shows normal echogenicity without hydro or obstruction. UOP at 1800mL Labs predating admission not available to me at the present. Interval History Patient had no verbal complaints today. Objective Data Data 12/27/16 12/28/16 19:00 07:00 Output Total 250 ml Balance -250 ml Output Urine Total 250 ml # Voids 1 1 Vital Signs Date Time Temp Pulse Resp B/P Pulse Ox O2 Delivery O2 Flow Rate FiO2 12/28/16 16:26 98.6 104 20 196/88 96 12/28/16 14:35 198/92 12/28/16 13:35 199/91 12/28/16 11:22 99.2 100 20 200/93 94 12/28/16 09:53 191/91 12/28/16 09:19 217/101 12/28/16 07:30 99.1 93 20 192/91 99 12/28/16 04:14 89 20 137/74 99 12/28/16 00:57 98.6 93 20 158/70 97 12/27/16 20:01 96 12/27/16 19:28 98 12/27/16 19:27 97.9 70 20 119/59 100 12/27/16 19:27 98.0 92 20 166/78 97 -: 12/28/16 0500 12/28/16 0500 Microbiology 12/27/16 Stool Occult Blood (ROSA) - Final, Complete HEMOCCULT NEGATIVE Medication Review Current Medications Sodium Chloride (NS 1000 ml Inj) 1,000 ml @ 999 mls/hr BOLUS ONCE IV Last administered on 12/26/16 17:00; Start 12/26/16 at 16:30; Stop 12/26/16 at 17:30; Status DC Insulin Human Regular (NovoLIN R INJ) 10 units ONCE ONCE IV PUSH Last administered on 12/26/16 18:28; Start 12/26/16 at 18:00; Stop 12/26/16 at 18:01; Status DC Dextrose (D50w (Vial) Inj) 50 ml ONCE ONCE IV PUSH Last administered on 18:24; Start 12/26/16 at 17:45; Stop 12/26/16 at 17:46; Status DC Sodium Bicarbonate (Sodium Bicarbonate 8.4% Inj) 50 meq ONCE ONCE SLOW IVP ; Start 12/26/16 at 17:45; Stop 12/26/16 at 17:46; Status DC Sodium Polystyrene Sulfonate (Kayexalate Liq) 15 gm ONCE ONCE PO Last administered on 12/26/16 18:33; Start 12/26/16 at 17:45; Stop 12/26/16 at 17:46; Status DC Sodium Bicarbonate 50 meq 50 meq ONCE ONCE IV PUSH Last administered on 18:34; Start 12/26/16 at 18:30; Stop 12/26/16 at 18:31; Status DC Sodium Chloride (NS 1000 ml Inj) 1,000 ml @ 100 mls/hr Q10H IV Last administered on 12/26/16 21:29; Start 12/26/16 at 19:33; Stop 12/27/16 at 05:32; Status DC Sodium Chloride (NS Flush) 2 ml UNSCH PRN IV FLUSH FLUSH AFTER USING IV ACCESS ; Start 12/26/16 at 19:45 Sodium Chloride (NS Flush) 2 ml BID IV FLUSH Last administered on 12/28/16 09: 25; Start 12/26/16 at 21:00 Acetaminophen (Tylenol) 650 mg Q4H PRN PO TEMP > 100.4; Start 12/26/16 at 19:45 Ondansetron HCl (Zofran Inj) 4 mg Q6H PRN IVP NAUSEA OR VOMITING; Start at 19:45 Naloxone HCl (Narcan Inj) 0.4 mg UNSCH PRN IV SEE LABEL COMMENTS; Start at 19:45 Bupropion HCl (Wellbutrin) 100 mg BID PO Last administered on 12/28/16 09:24; Start 12/26/16 at 21:00 Divalproex Sodium (Depakote Er) 500 mg DAILY PO Last administered on 12/28/16 09:25; Start 12/27/16 at 09:00 Gabapentin (Neurontin) 600 mg TID PO Last administered on 12/27/16 13:19; Start 12/27/16 at 09:00; Stop 12/27/16 at 14:09; Status DC Lorazepam (Ativan) 1 mg Q8H PRN PO ANXIETY Last administered on 12/27/16 10:45 ; Start 12/26/16 at 20:45 Trazodone HCl (Desyrel) 300 mg HS PO Last administered on 12/27/16 20:54; Start 12/26/16 at 21:00 Dextrose (D50w (Vial) Inj) 25 ml UNSCH PRN IV PUSH HYPOGLYCEMIA-SEE COMMENTS; Start 12/26/16 at 21:00 Glucagon (Glucagon Inj) 1 mg UNSCH PRN OTHER HYPOGLYCEMIA-SEE COMMENTS; Start 12/26/16 at 21:00 Insulin Aspart (NovoLOG SUPPLEMENTAL SCALE) 1 ACHS SLIDING SCALE SQ Last administered on 12/28/16 13:27; Start 12/26/16 at 21:00 Sodium Polystyrene Sulfonate (Kayexalate Liq) 15 gm ONCE ONCE PO Last administered on 12/27/16 10:34; Start 12/27/16 at 09:45; Stop 12/27/16 at 09:46; Status DC Amlodipine Besylate (Norvasc) 10 mg DAILY PO Last administered on 12/28/16 09: 24; Start 12/27/16 at 11:15 Gabapentin (Neurontin) 300 mg BID PO Last administered on 12/28/16 09:24; Start 12/27/16 at 21:00 Sodium Polystyrene Sulfonate (Kayexalate Liq) 15 gm ONCE ONCE PO Last administered on 12/28/16 08:45; Start 12/28/16 at 08:45; Stop 12/28/16 at 08:46 ; Status DC Amlodipine Besylate (Norvasc) 5 mg DAILY PO Last administered on 12/28/16 11: 51; Start 12/28/16 at 11:00 Physical Exam General Appearance: Well Nourished, No Acute Distress, Comfortable Eyes Eye Exam: Sclera White Neck Neck Exam: Trachea Midline Pulmonary Resp Exam: Clear Bilaterally, Breath Sounds Equal, No Distress Cardiology CV Exam: Regular, Normal Sinus Rhythm, Irregular Gastrointestinal/Abdomen GI Exam: Soft, Non-Tender Integumentary Skin Exam: Clear, Warm Extremeties Extremities Exam: No Edema Neurologic Neuro Exam: Alert, Awake, Speech Clear, Moving All Extremities Psychiatric Psych Exam: Appropriate Responses Assessment/Plan Discussed Condition With: Patient Problem List: (1) CKD (chronic kidney disease) stage 4, GFR 15-29 ml/min Plan: Which appears to be secondary to diabetic nephropathy given history of diabetic retinopathy and proteinuria. Patient counseled regarding severity of renal dysfunction and need for follow- up with a health researcher as an outpatient. Medications should be adjusted for the patient's estimated GFR if clinically indicated. Avoid agents with significant potential for nephrotoxicity possible including NSAIDs for analgesia, iodine contrast agents. Gadolinium is contraindicated if the GFR is below 30. (2) Vitamin D deficiency Plan: We'll start ergocalciferol 50,000 units weekly. Patient counseled regarding need for same. (3) Anemia Plan: No evidence of iron deficiency. Await stool for occult blood. Consider hematology opinion. Patient may have anemia of renal disease. Would not recommend Procrit unless blood pressures controlled. (4) Hyperkalemia Plan: Given proteinuria and diabetic kidney disease patient would potentially benefit from an ASHLEIGH inhibitor or angiotensin receptor marv to slow progression of CKD and reduce proteinuria however hyperkalemia precludes this currently. Continue amlodipine but will adjust hypertensive regimen to improve blood pressure control. We'll add a small dose of furosemide also. (5) Type 1 diabetes mellitus Plan: Mgmt per primary Has neuropathy for which he states he uses Gabapentin 1200mg TID. As his eGFR is diminished, the maximum recommended dose is 700mg QD which I have adjusted. (6) Hypertension Plan: As above. (7) Proteinuria Plan: Secondary to diabetic nephropathy. (8) Coronary artery disease Plan: As per hx (9) Bipolar disorder Plan: Mgmt as per primary Was recently started on Bupropion which according to literature guidelines, dosage should be decreased or another agent considered with CKD. Will defer this to the primary, but may need psych opinion about medication management---if not impatient, then outpatient. Plan Total time spent 38 minutes. Lottie Gentile MD December 28, 2016 16:45
[2016-12-28] MEDS ORDERED: PILL SPLITTER OTHER PRN (17:00)
[2016-12-28] MEDS: LORazepam 1 MG TAB PO PRN (19:58)
[2016-12-28] MEDS: traZODone HCL 100 MG TAB PO SCH (19:59)
[2016-12-28] MEDS: CARVEDILOL 3.125 MG TAB PO SCH (19:59)
--- NOTE | 2016-12-28 21:00 | MB ---
cc: BOBO GILLILAND M.D. DATE OF CONSULTATION: 12/28/2016 HISTORY OF PRESENT ILLNESS He is seen in neurological consultation. He is 51 years old with a history of tremors and kidney disorder. This is a patient who has been in the hospital since December. History of diabetes mellitus, depression and hypertension. He apparently takes Depakote and gabapentin for bipolar. He had elevated potassium and creatine at the [facility]. Apparently recently was discharged from [facility] to [facility] secondary to a court order because of him taking one of her morphine tablets. MEDICATIONS His reported medications were - 1. Lorazepam. 2. Gabapentin. 3. Trazodone. 4. Depakote 500 mg a day. 5. Losartan. 6. Buproprion. SOCIAL HISTORY He denied alcohol use. Denied a history of stroke and cancer. He admits the insulin dependent diabetes mellitus for many years. He is reportedly noncompliant in his diabetes care. NEUROLOGIC EXAMINATION The exam showed the patient to be awake, alert and he was pleasant and cooperative. He is grossly oriented, unable to give me more details about his hospitalization and often referred me to discuss with his . He has [id number] trembling of upper and some tremor of lower extremities with asterixis and near myoclonus type of the trembling intermittently when he raised the arms. He has full ocular movements. Visual jacobson are full. No facial weakness. He raises the lower extremities and opposes resistance. Status post left foot/ankle surgery. Muscle stretch reflex essentially absent throughout except for possible trace response at the knees. Plantar responses were flexor. He responds to position sense to distal lower extremities with some limitation. There is obvious sensory loss to pin and touch to the distal lower extremities. LABORATORY DATA Reviewed. ASSESSMENT Tremors/myoclonus. This is likely all from metabolic encephalopathy and evidently the primary issue is the renal failure. It appears that he has had these tremors for six months or so. He is taking Depakote which can aggravate tremor but he is taking a relatively small dose but his multiple bipolar medications (Depakote, gabapentin, trazodone and bupropion) also might be important factors on his encephalopathy and trembling. He needs the aggressive medical/renal management in order to achieve some neurological improvement as well. He definitely can and should be followed by Neurology as outpatient. I initially would try to reduce the bupropion because of the possible adverse responses in this situation, and also would consider stopping the Depakote to see how his tremors evolve with this management. I will follow him as outpatient. Thank you for asking us to assist in his care. MD TYSON Klein/BJF /4:57 PM /8:37 PM
[2016-12-29 04:27] VITALS: BP 187/91; PULSE 96; RESP 19; TEMP 98.3; O2SAT 96
[2016-12-29] MEDS: INSULIN ASPART SUPPLEMENTAL SCALE SQ SCH ×4 (06:03→20:56)
[2016-12-29 07:53] VITALS: BP 200/95; PULSE 101; RESP 16; TEMP 98.5; O2SAT 98
[2016-12-29] MEDS: DIVALPROEX SODIUM E.R. 500 MG TAB PO SCH (08:10)
[2016-12-29] MEDS: buPROPion HCL 100 MG TAB PO SCH (08:11)
[2016-12-29] MEDS: GABAPENTIN 300 MG CAP PO SCH ×2 (08:11→20:42)
[2016-12-29] MEDS: SODIUM CHLORIDE 0.9% FLUSH 10 ML FLUSH IV FLUSH SCH ×2 (08:11→20:56)
[2016-12-29] MEDS: FUROSEMIDE 20 MG TAB PO SCH (08:11)
[2016-12-29] MEDS: CARVEDILOL 3.125 MG TAB PO SCH ×2 (08:11→20:42)
[2016-12-29] MEDS ORDERED: LABETALOL HCL 100 MG/20 ML VIAL IV PUSH PRN (08:30)
--- NOTE | 2016-12-29 08:48 | HHI.PR ---
Subjective Remarks f/u for Acute on chronic renal failure. patient stated he had a LORENZANA since last night and noone gave him any medication for his LORENZANA. He stated LORENZANA starts in back of his head and radiates to the front. Patient stated he had this LORENZANA before due to high blood pressure. Denied any N/V or focal neurological deficits. He stated he "thinks his tremors has gotten better." Patient stated he has not gotten out of bed due to tremors but prior to hospitalization he was able to walk. Objective Vitals Vital Signs Date Time Temp Pulse Resp B/P Pulse Ox O2 Delivery O2 Flow Rate FiO2 12/29/16 07:53 98.5 101 16 200/95 98 12/29/16 04:27 98.3 96 19 187/91 96 12/28/16 23:22 98.5 95 20 189/91 96 12/28/16 19:35 180/92 12/28/16 19:28 99.2 107 21 188/86 96 12/28/16 17:59 109 12/28/16 16:26 98.6 104 20 196/88 96 12/28/16 14:35 198/92 12/28/16 13:35 199/91 12/28/16 11:22 99.2 100 20 200/93 94 12/28/16 09:53 191/91 12/28/16 09:19 217/101 I/O 12/28/16 12/28/16 12/28/16 12/29/16 12/29/16 12/29/16 07:00 15:00 23:00 07:00 15:00 23:00 Output Total 1050 ml Balance -1050 ml Output Urine Total 1050 ml Result Diagram: 12/28/16 0500 12/28/16 0500 Objective Remarks GENERAL: in NAD CARDIOVASCULAR: Regular rate and rhythm without murmurs, gallops, or rubs. RESPIRATORY: Breath sounds equal bilaterally. No accessory muscle use. GASTROINTESTINAL: Abdomen soft, non-tender, nondistended. MUSCULOSKELETAL: No cyanosis, or edema. BACK: Nontender without obvious deformity. No CVA tenderness. NEURO: AAO X 3. CN 2-12 intact. no r/m/g. Medications and IVs Current Medications Sodium Chloride (NS 1000 ml Inj) 1,000 ml @ 999 mls/hr BOLUS ONCE IV Last administered on 12/26/16 17:00; Start 12/26/16 at 16:30; Stop 12/26/16 at 17:30; Status DC Insulin Human Regular (NovoLIN R INJ) 10 units ONCE ONCE IV PUSH Last administered on 12/26/16 18:28; Start 12/26/16 at 18:00; Stop 12/26/16 at 18:01; Status DC Dextrose (D50w (Vial) Inj) 50 ml ONCE ONCE IV PUSH Last administered on 18:24; Start 12/26/16 at 17:45; Stop 12/26/16 at 17:46; Status DC Sodium Bicarbonate (Sodium Bicarbonate 8.4% Inj) 50 meq ONCE ONCE SLOW IVP ; Start 12/26/16 at 17:45; Stop 12/26/16 at 17:46; Status DC Sodium Polystyrene Sulfonate (Kayexalate Liq) 15 gm ONCE ONCE PO Last administered on 12/26/16 18:33; Start 12/26/16 at 17:45; Stop 12/26/16 at 17:46; Status DC Sodium Bicarbonate 50 meq 50 meq ONCE ONCE IV PUSH Last administered on 18:34; Start 12/26/16 at 18:30; Stop 12/26/16 at 18:31; Status DC Sodium Chloride (NS 1000 ml Inj) 1,000 ml @ 100 mls/hr Q10H IV Last administered on 12/26/16 21:29; Start 12/26/16 at 19:33; Stop 12/27/16 at 05:32; Status DC Sodium Chloride (NS Flush) 2 ml UNSCH PRN IV FLUSH FLUSH AFTER USING IV ACCESS ; Start 12/26/16 at 19:45 Sodium Chloride (NS Flush) 2 ml BID IV FLUSH Last administered on 12/29/16 08: 11; Start 12/26/16 at 21:00 Acetaminophen (Tylenol) 650 mg Q4H PRN PO TEMP > 100.4; Start 12/26/16 at 19:45 Ondansetron HCl (Zofran Inj) 4 mg Q6H PRN IVP NAUSEA OR VOMITING; Start at 19:45 Naloxone HCl (Narcan Inj) 0.4 mg UNSCH PRN IV SEE LABEL COMMENTS; Start at 19:45 Bupropion HCl (Wellbutrin) 100 mg BID PO Last administered on 12/29/16 08:11; Start 12/26/16 at 21:00 Divalproex Sodium (Depakote Er) 500 mg DAILY PO Last administered on 12/29/16 08:10; Start 12/27/16 at 09:00 Gabapentin (Neurontin) 600 mg TID PO Last administered on 12/27/16 13:19; Start 12/27/16 at 09:00; Stop 12/27/16 at 14:09; Status DC Lorazepam (Ativan) 1 mg Q8H PRN PO ANXIETY Last administered on 12/28/16 19:58 ; Start 12/26/16 at 20:45 Trazodone HCl (Desyrel) 300 mg HS PO Last administered on 12/28/16 19:59; Start 12/26/16 at 21:00 Dextrose (D50w (Vial) Inj) 25 ml UNSCH PRN IV PUSH HYPOGLYCEMIA-SEE COMMENTS; Start 12/26/16 at 21:00 Glucagon (Glucagon Inj) 1 mg UNSCH PRN OTHER HYPOGLYCEMIA-SEE COMMENTS; Start 12/26/16 at 21:00 Insulin Aspart (NovoLOG SUPPLEMENTAL SCALE) 1 ACHS SLIDING SCALE SQ Last administered on 12/28/16 13:27; Start 12/26/16 at 21:00 Sodium Polystyrene Sulfonate (Kayexalate Liq) 15 gm ONCE ONCE PO Last administered on 12/27/16 10:34; Start 12/27/16 at 09:45; Stop 12/27/16 at 09:46; Status DC Amlodipine Besylate (Norvasc) 10 mg DAILY PO Last administered on 12/29/16 08: 11; Start 12/27/16 at 11:15 Gabapentin (Neurontin) 300 mg BID PO Last administered on 12/29/16 08:11; Start 12/27/16 at 21:00 Sodium Polystyrene Sulfonate (Kayexalate Liq) 15 gm ONCE ONCE PO Last administered on 12/28/16 08:45; Start 12/28/16 at 08:45; Stop 12/28/16 at 08:46 ; Status DC Amlodipine Besylate (Norvasc) 5 mg DAILY PO Last administered on 12/28/16 11: 51; Start 12/28/16 at 11:00; Stop 12/28/16 at 16:55; Status DC Furosemide (Lasix) 10 mg DAILY PO Last administered on 12/29/16 08:11; Start 12/29/16 at 09:00 Carvedilol (Coreg) 3.125 mg Q12HR PO Last administered on 12/29/16 08:11; Start 12/28/16 at 21:00 Miscellaneous (Pill Splitter) 1 ea UNSCH PRN OTHER SEE LABEL COMMENTS; Start at 17:00 Labetalol HCl (Trandate Inj) 10 mg Q4H PRN IV PUSH SYS BP GREATER THAN 180 MMHG ; Start 12/29/16 at 08:30 Hydralazine HCl (Apresoline) 25 mg Q8H PO ; Start 12/29/16 at 09:00 A/P Problem List: (1) Hyperkalemia ICD Code: E87.5 Status: Acute Assessment and Plan The patient is a 51-year-old male with a past medical history which includes hypertension, diabetes mellitus, bipolar with depression. Patient is on Depakote as well as gabapentin reports he takes these for his bipolar not for seizure disorder. Patient presents to the emergency department today from [facility] for evaluation of elevated potassium and elevated creatine. Patient reports while he was in the hospital possibly 2 weeks ago they , "almost," had to start dialysis secondary to Anuria x 2 days. Patient reports he was first told that he had, "kidney issues," 6 months to a year ago. Initial laboratory data reviewed potassium 5.8 BUN 52 creatinine 2.98, estimated GFR 22, hemoglobin 8.4 with hematocrit 24.4 Acute kidney injury versus chronic kidney disease -Patient was given normal saline at 100 cc/h. Creatinine/GFR improved. -Porcelain Enamel Installer consulted and stated this is most likely diabetic and hypertensive nephropathy. -Avoid nephrotoxins. -would benefits from ASHLEIGH/ARB but has hyperkalemia. Anemia -hemoccult negative and iron studies does not suggest iron def anemia. -consult Contract Post Office Clerk. LORENZANA -maybe due to uncontrol hypertension. -no red flags noted. -will give Tylenol to see if that improves LORENZANA. Hyperkalemia -s/p sodium bicarbonate, insulin as well as Kayexalate emergency department and potassium improved to 5.2. -No events over telemetry. Will give another dose of Kayexalate pending recommendations from spinning mule operator. -Patient will need a low potassium diet. -pending BMP results from today. Hypertension Urgency -Losartan was held secondary to kidney disease. -maybe exacerbated by his LORENZANA. Depokote was stopped yesterday. -amlodipine increased to 10 mg PO Daily and added hydralazine. -add labetolol PRN. Bipolar - home regimen include divalproex, gabapentin, trazodone and bupropion -depokote d/c due to tremors and bupropion dose decreased. Diabetes mellitus -Currently on insulin sliding scale. Chronic tremors -Neurologist ff and appreciate recommendations. -due to RF and medication. -depokote d/c and bupropion dosage was decrease. -continue to monitor and consult PT since patient is not getting out of bed due to tremors. DVT prophylaxis with heparin and SCDs Discharge Planning patient has hypertensive urgency and hyperkalemia. Needs continual hospitalization for treatment. Maggie Blankenship MD December 29, 2016 08:47
[2016-12-29 09:06] LABS: BICARBONATE 27.2 MEQ/L (21.0-32.0); POTASSIUM 4.6 MEQ/L (3.5-5.1)
[2016-12-29 09:13] VITALS: BP 159/82
[2016-12-29] MEDS: hydrALAZINE HCL 25 MG TAB PO SCH ×2 (09:43→17:01)
[2016-12-29] MEDS: ACETAMINOPHEN 325 MG TAB PO PRN ×2 (09:44→17:01)
[2016-12-29 11:32] VITALS: BP 157/72; PULSE 88; RESP 18; TEMP 99.6; O2SAT 95
--- NOTE | 2016-12-29 14:27 | PD.CONS ---
Provisional Diagnosis Admission Date December 26, 2016 at 18:06 [place] I. Bipolar disorder, substance-induced mood disorder, opiates and benzodiazepines use disorder [place] II. Deferred History of Present Illness Service Psychiatry Consult Requested By Primary Care Physician [facility] HPI The patient is a 51-year-old man, domicile with his in [place], unemployed, disabled, [facility], with psychiatric history of bipolar disorder, multiple psychiatric hospitalizations, multiple suicidal attempts, opiates and benzodiazepines use disorder, history of detox/rehabilitation's, [facility], he is on Depakote 500 mg twice a day, gabapentin 300 mg twice a day, bupropion 100 mg 3 times a day, Xanax unknown doses, medical history which includes hypertension, diabetes mellitus. Patient presents to the emergency department today from [facility] for evaluation of elevated potassium and elevated creatine. Patient reports while he was in the hospital possibly 2 weeks ago they, "almost," had to start dialysis secondary to Anuria x 2 days. Patient reports he was first told that he had, "kidney issues," 6 months to a year ago. Initial laboratory data reviewed potassium 5.8 BUN 52 creatinine 2.98, estimated GFR 22, hemoglobin 8.4 with hematocrit 24.4. Acute kidney injury versus chronic kidney disease. He also presented with Chronic tremors, neurology saw him, recommended to decrease psychotropics. Patient was consulted to psychiatry to adjust psychiatric medications. On psychiatric evaluation patient is found sleeping, while asleep no tremors noticed. Patient was easily arousable, once awakened no tremors noted. He says that he is not shaking anymore now. He feels better. He is oppositional and resistant to the psychiatric interview, stating that he doesn' t need to see a psychiatrist this time. He keeps falling asleep in my face. He denies depressive symptoms, he denies anxiety, he denies psychosis, he denies suicidal or homicidal ideation, he denies visual and auditory hallucinations. She is oriented 3. Patient denies the use of illicit drugs, he denies abuse of prescribed medications. However, collateral information from his was contacted, Susy Ng, she informs that patient has a long history of benzodiazepines and opiates abuse. She Mason polk acted him "becausehe has been is stealing my medications to use it". She says that he has a severe Xanax and opiates (morphing and heroine) addiction, and he has overdosed accidentally and intentionally multiple times in his life. She says that he has been compliant with [facility]. she does not think that the patient is a psychiatric admission at this time. Her impression is that the patient is a detox/rehabilitation. Review of Systems Constitutional: DENIES: Diaphoretic episodes, Fatigue, Fever, Weight gain, Weight loss, Chills, Dizziness, Change in appetite, Night Sweats Endocrine: DENIES: Heat/cold intolerance, Polydipsia, Polyuria, Polyphagia Eyes: DENIES: Blurred vision, Diplopia, Eye inflammation, Eye pain, Vision loss , Photosensitivity, Double Vision Respiratory: DENIES: Apneas, Cough, Snoring, Wheezing, Hemoptysis, Sputum production, Shortness of breath Cardiovascular: DENIES: Chest pain, Palpitations, Syncope, Dyspnea on Exertion , PND, Lower Extremity Edema, Orthopnea, Claudication Gastrointestinal: DENIES: Abdominal pain, Black stools, Bloody stools, Constipation, Diarrhea, Nausea, Vomiting, Difficulty Swallowing, Anorexia Genitourinary: DENIES: Sexual dysfunction, Urinary frequency, Urinary incontinence, Urgency, Hematuria, Dysuria, Nocturia, Penile Discharge, Testicular Pain, Testicular Swelling Integumentary: DENIES: Abnormal pigmentation, Nail changes, Pruritus, Rash Neurologic: COMPLAINS OF: Tremor, DENIES: Abnormal gait, Headache, Localized weakness, Paresthesias, Seizures, Speech Problems, Poor Balance Psychiatric: COMPLAINS OF: Anxiety, DENIES: Confusion, Mood changes, Depression, Hallucinations, Agitation, Suicidal Ideation, Homicidal Ideation, Delusions Past Family Social History Coded Allergies: No Known Allergies (Unverified , 12/26/16) Reported Medications Lorazepam 1 Mg Tab1 Mg PO Q8H PRN (ANXIETY) Ref 0 12/26/16 Gabapentin 600 Mg Tab1,200 Mg PO TID #90 TAB Ref 0 12/26/16 Trazodone 300 Mg Niv329 Mg PO HS #30 TAB Ref 0 12/26/16 Divalproex ER 500 Mg Atf850 Mg PO DAILY #30 TAB Ref 0 12/26/16 Losartan 25 Mg Tab25 Mg PO DAILY #30 TAB Ref 0 12/26/16 Bupropion HCl 100 Mg Ucl657 Mg PO BID Ref 0 12/26/16 Current Medications Medications (Trade) Dose Ordered Sig/Kesha Route Start Time Stop Time Status Last Admin (NS Flush) 2 ml UNSCH PRN IV FLUSH 12/26/16 19:45 (NS Flush) 2 ml BID IV FLUSH 12/26/16 21:00 12/29/16 08:11 (Tylenol) 650 mg Q4H PRN PO 12/26/16 19:45 12/29/16 09:44 (Zofran Inj) 4 mg Q6H PRN IVP 12/26/16 19:45 (Narcan Inj) 0.4 mg UNSCH PRN IV 12/26/16 19:45 (Depakote Er) 500 mg DAILY PO 12/27/16 09:00 Hold 12/29/16 08:10 (Ativan) 1 mg Q8H PRN PO 12/26/16 20:45 12/28/16 19:58 (Desyrel) 300 mg HS PO 12/26/16 21:00 12/28/16 19:59 (D50w (Vial) Inj) 25 ml UNSCH PRN IV PUSH 12/26/16 21:00 (Glucagon Inj) 1 mg UNSCH PRN OTHER 12/26/16 21:00 (Norvasc) 10 mg DAILY PO 12/27/16 11:15 12/29/16 08:11 (Neurontin) 300 mg BID PO 12/27/16 21:00 12/29/16 08:11 (Lasix) 10 mg DAILY PO 12/29/16 09:00 12/29/16 08:11 (Coreg) 3.125 mg Q12HR PO 12/28/16 21:00 12/29/16 08:11 (Pill Splitter) 1 ea UNSCH PRN OTHER 12/28/16 17:00 (Trandate Inj) 10 mg Q4H PRN IV PUSH 12/29/16 08:30 (Apresoline) 25 mg Q8H PO 12/29/16 09:00 12/29/16 09:43 (Wellbutrin) 75 mg Q12HR PO 12/29/16 21:00 Family History Patient denies family psychiatric history Social History Patient lives with his in [place], is unemployed, supported by Social Security, he is [facility] service-[facility], his highest level of education is high school Patient's Strengths (min. 2) Verbal communication, family support Physical Exam At the moment of my evaluation no tremors, no EPS, no withdrawal, no psychomotor retardation or agitation, are present Vital Signs Vital Signs Date Time Temp Pulse Resp B/P Pulse Ox O2 Delivery O2 Flow Rate FiO2 12/29/16 11:32 99.6 88 18 157/72 95 12/27/16 07:09 21 12/26/16 19:02 Room Air I/O 12/28/16 12/28/16 12/29/16 08:00 16:00 00:00 Output Total 1050 ml Balance -1050 ml Lab Results Valproic acid level was 22 Creatinine 2.34, BUN 20, K4.6 now Mental Status Examination Appearance man, age appearing, [facility], superficially cooperative, guarded Speech: Hesitant Orientation: x3 Memory: Unremarkable Thought Process: Logical, Goal Directed, Linear Thought Content: Unremarkable Hallucination Type: None Attention and Concentration: Good Suicidal Ideation: No Previous Suicide Attempts: Yes Homicidal Ideation: No Previous Homicide Attempts: No Judgment: WNL Mood: Irritable Motor Activity: Normal gait Assessment & Plan Problem List: (1) Bipolar disorder Assessment & Plan: The patient is a 51-year-old man, domicile with his in [place], unemployed, disabled, [place] service-connected, with psychiatric history of bipolar disorder, multiple psychiatric hospitalizations, multiple suicidal attempts, opiates and benzodiazepines use disorder, history of detox/rehabilitation's, [facility], he is on Depakote 500 mg twice a day, gabapentin 300 mg twice a day, bupropion 100 mg 3 times a day, Xanax unknown doses, medical history which includes hypertension , diabetes mellitus. Patient presents to the emergency department today from [facility] for evaluation of elevated potassium and elevated creatine. On psychiatric evaluation today the patient does not present any acute, concerning or significant subjective or objective symptomatology of depression psychosis or shelbie. Patient denies suicidal or homicidal ideation, he denies visual and auditory hallucinations. he does report anxiety related with current medical situation and most probably also to benzodiazepines/ opiates withdrawal. Patient has an extensive history of accidental suicide attempts, benzodiazepines and opiates abuse. Her reports a recent increased in the abuse of these drugs. In my examination there are no tremors noted. Patient clarifies that he is not checking anymore. I do not think that tremors are related with psychotropics at all. His Depakote level is just 22, which is suboptimal, meaning that patient most probably is noncompliant/ nonadherent. Due to his increased blood pressure, autonomic instability, anxiety and history of drug use, most probably tremors are related with benzodiazepines withdrawal, rather than side effect of psychotropics. This patient does not meet criteria for psychiatric admission at this moment. Extensive psycho education, supportive motivation provided. Okay to decrease psychotropics. Once medically clear transfer back to [facility] for court mandated detox/rehabilitation. Consult appreciated. ICD Code: F31.9 Assessment & Plan Estimated LOS: Higinio Hendrix MD December 29, 2016 14:27
[2016-12-29 15:48] VITALS: BP 150/73; PULSE 90; RESP 16; TEMP 98.5; O2SAT 95
--- NOTE | 2016-12-29 18:17 | HHI.NPPN ---
Subjective History of Present Illness The patient is a 51 yo [place] male who was sent by [facility] 12/26/16 after labs showed an elevated K+ at 5.8 and SCr at 2.98. The patient was Tapia Acted recently by his after she found that he was taking her prescribed Morphine. He is a questionable historian, but says that he was recently admitted at [facility] in [place] for "falling out" and was told at that time that his kidney functions were so impaired that he may have to require dialysis. Prior to this, says he [facility] the [facility] that he did have renal insufficiency about 6 months ago, but is uncertain of his baseline status. Is a type 1 diabetic and admits that he is not compliant. Has had complications from his diabetes including retinopathy and neuropathy. Is unaware of any hx of proteinuria. He is also hypertensive for many years. Denies any hx of collagen vascular disease, urological obstructions, prostatic issues. He mentions he had an [place] some time ago, but no known CHF hx. In the past 2 weeks, was started on Bupropion and Xanax by [facility]. Has been on Gabapentin, Depakote, and Losartan for the past 6 months or so. Keeps saying he is "falling out" but is unable to elaborate what that means besides saying he is tremoring in his R hand with sporadic jerking movements. Denies any NVDC. No NSAID use. No urinary issues. Admitting SCr 2.98 that improved to 2.44 at consult. K+ was 5.8 that improved to 5.2. Alb of 2.4 with 1+ proteinuria on UA. Hgb at 7.5. Renal US shows normal echogenicity without hydro or obstruction. UOP at 1800mL Labs predating admission not available to me at the present. Interval History Pt feeling OK today. Has had LORENZANA today, but improving. No new complaints (Anahi Rudolph) Review of Systems Neuro Neuro: Headache (Anahi Rudolph) Objective Data Data 12/28/16 12/29/16 19:00 07:00 Output Total 1050 ml Balance -1050 ml Output Urine Total 1050 ml Vital Signs Date Time Temp Pulse Resp B/P Pulse Ox O2 Delivery O2 Flow Rate FiO2 12/29/16 15:48 98.5 90 16 150/73 95 12/29/16 11:32 99.6 88 18 157/72 95 12/29/16 11:00 19 12/29/16 09:13 159/82 12/29/16 07:53 98.5 101 16 200/95 98 12/29/16 04:27 98.3 96 19 187/91 96 12/28/16 23:22 98.5 95 20 189/91 96 12/28/16 19:35 180/92 12/28/16 19:28 99.2 107 21 188/86 96 (Anahi Rudolph) -: 12/28/16 0500 12/29/16 0745 Imaging Last Impressions Renal Ultrasound 12/26/16 0000 Signed Impressions: Service Date/Time: Monday, December 26, 2016 23:09 - CONCLUSION: Normal examination. Eddie Salguero Jr., MD Medication Review Current Medications Medications (Trade) Dose Ordered Sig/Kesha Route Start Time Stop Time Status Last Admin (NS Flush) 2 ml UNSCH PRN IV FLUSH 12/26/16 19:45 (NS Flush) 2 ml BID IV FLUSH 12/26/16 21:00 12/29/16 08:11 (Tylenol) 650 mg Q4H PRN PO 12/26/16 19:45 12/29/16 17:01 (Zofran Inj) 4 mg Q6H PRN IVP 12/26/16 19:45 (Narcan Inj) 0.4 mg UNSCH PRN IV 12/26/16 19:45 (Depakote Er) 500 mg DAILY PO 12/27/16 09:00 Hold 12/29/16 08:10 (Ativan) 1 mg Q8H PRN PO 12/26/16 20:45 12/28/16 19:58 (Desyrel) 300 mg HS PO 12/26/16 21:00 12/28/16 19:59 (D50w (Vial) Inj) 25 ml UNSCH PRN IV PUSH 12/26/16 21:00 (Glucagon Inj) 1 mg UNSCH PRN OTHER 12/26/16 21:00 (Norvasc) 10 mg DAILY PO 12/27/16 11:15 12/29/16 08:11 (Neurontin) 300 mg BID PO 12/27/16 21:00 12/29/16 08:11 (Lasix) 10 mg DAILY PO 12/29/16 09:00 12/29/16 08:11 (Coreg) 3.125 mg Q12HR PO 12/28/16 21:00 12/29/16 08:11 (Pill Splitter) 1 ea UNSCH PRN OTHER 12/28/16 17:00 (Trandate Inj) 10 mg Q4H PRN IV PUSH 12/29/16 08:30 (Apresoline) 25 mg Q8H PO 12/29/16 09:00 12/29/16 17:01 (Wellbutrin) 75 mg Q12HR PO 12/29/16 21:00 (Anahi Rudolph) Physical Exam General Appearance: Well Nourished, No Acute Distress, Comfortable (Anahi Rudolph) Eyes Eye Exam: Sclera White (Anahi Rudolph) Neck Neck Exam: Trachea Midline (Anahi Rudolph) Pulmonary Resp Exam: Clear Bilaterally, Breath Sounds Equal, No Distress (Anahi Rudolph) Cardiology CV Exam: Regular, Normal Sinus Rhythm, Irregular (Anahi Rudolph) Gastrointestinal/Abdomen GI Exam: Soft, Non-Tender (Anahi Rudolph) Integumentary Skin Exam: Clear, Warm (Anahi Rudolph) Extremeties Extremities Exam: No Edema (Anahi Rudolph) Neurologic Neuro Exam: Alert, Awake, Speech Clear, Moving All Extremities (Anahi Rudolph) Psychiatric Psych Exam: Appropriate Responses (Anahi Rudolph) Assessment/Plan Discussed Condition With: Patient Problem List: (1) CKD (chronic kidney disease) stage 4, GFR 15-29 ml/min Plan: Which appears to be secondary to diabetic nephropathy given history of diabetic retinopathy and proteinuria. Renal functions stable. Patient counseled regarding severity of renal dysfunction and need for follow- up with a master plumber as an outpatient. At this time, we will sign off. Medications should be adjusted for the patient's estimated GFR if clinically indicated. Avoid agents with significant potential for nephrotoxicity possible including NSAIDs for analgesia, iodine contrast agents. Gadolinium is contraindicated if the GFR is below 30. (2) Vitamin D deficiency Plan: Continue on ergocalciferol 50,000 units weekly. Patient counseled regarding need for same. (3) Anemia Plan: No evidence of iron deficiency. Await stool for occult blood. Consider hematology opinion. Patient may have anemia of renal disease. Would not recommend Procrit unless blood pressures controlled. (4) Hyperkalemia Plan: Given proteinuria and diabetic kidney disease patient would potentially benefit from an ASHLEIGH inhibitor or angiotensin receptor marv to slow progression of CKD and reduce proteinuria however hyperkalemia precludes this currently. Continue on Amlodipine and Furosemide. Would ideally like BP to be <140/90 (5) Type 1 diabetes mellitus Plan: Mgmt per primary (6) Hypertension Plan: As above. (7) Proteinuria Plan: Secondary to diabetic nephropathy. (8) Coronary artery disease Plan: As per hx (9) Bipolar disorder Plan: Mgmt as per primary (Anahi Rudolph) Plan The exam, history, and the medical decision-making described in the above note were completed with the assistance of the PA-C. I reviewed and agree with the findings presented. (Lottie Gentile MD) Anahi Rudolph December 29, 2016 18:17 Lottie Gentile MD Feb 21, 2017 13:26
--- NOTE | 2016-12-29 18:28 | HHI.PR ---
Review/Management Daily Summary 12/29 much improved, feeling better, only mild left hand tremor tremor likely secondary to encephaloapthy from renal failure and withdrawal will follow prn neuro Subjective Subjective Comments No acute neuro events reported he feels tremor much improved Active Medications Current Medications Medications (Trade) Dose Ordered Sig/Kesha Route Start Time Stop Time Status Last Admin (NS Flush) 2 ml UNSCH PRN IV FLUSH 12/26/16 19:45 (NS Flush) 2 ml BID IV FLUSH 12/26/16 21:00 12/29/16 08:11 (Tylenol) 650 mg Q4H PRN PO 12/26/16 19:45 12/29/16 17:01 (Zofran Inj) 4 mg Q6H PRN IVP 12/26/16 19:45 (Narcan Inj) 0.4 mg UNSCH PRN IV 12/26/16 19:45 (Depakote Er) 500 mg DAILY PO 12/27/16 09:00 Hold 12/29/16 08:10 (Ativan) 1 mg Q8H PRN PO 12/26/16 20:45 12/28/16 19:58 (Desyrel) 300 mg HS PO 12/26/16 21:00 12/28/16 19:59 (D50w (Vial) Inj) 25 ml UNSCH PRN IV PUSH 12/26/16 21:00 (Glucagon Inj) 1 mg UNSCH PRN OTHER 12/26/16 21:00 (Norvasc) 10 mg DAILY PO 12/27/16 11:15 12/29/16 08:11 (Neurontin) 300 mg BID PO 12/27/16 21:00 12/29/16 08:11 (Lasix) 10 mg DAILY PO 12/29/16 09:00 12/29/16 08:11 (Coreg) 3.125 mg Q12HR PO 12/28/16 21:00 12/29/16 08:11 (Pill Splitter) 1 ea UNSCH PRN OTHER 12/28/16 17:00 (Trandate Inj) 10 mg Q4H PRN IV PUSH 12/29/16 08:30 (Apresoline) 25 mg Q8H PO 12/29/16 09:00 12/29/16 17:01 (Wellbutrin) 75 mg Q12HR PO 12/29/16 21:00 Allergies Allergies Coded Allergies No Known Allergies (Unverified12/26/16) Exam I&O / VS 12/28/16 12/28/16 12/29/16 15:00 23:00 07:00 Output Total 1050 ml Balance -1050 ml Output Urine Total 1050 ml Vital Signs Date Time Temp Pulse Resp B/P Pulse Ox O2 Delivery O2 Flow Rate FiO2 12/29/16 15:48 98.5 90 16 150/73 95 12/29/16 11:32 99.6 88 18 157/72 95 12/29/16 11:00 19 12/29/16 09:13 159/82 12/29/16 07:53 98.5 101 16 200/95 98 12/29/16 04:27 98.3 96 19 187/91 96 12/28/16 23:22 98.5 95 20 189/91 96 12/28/16 19:35 180/92 12/28/16 19:28 99.2 107 21 188/86 96 Objective Micro and Labs Laboratory Tests Test 12/29/16 07:45 Sodium Level 144 Potassium Level 4.6 Chloride Level 110 Carbon Dioxide Level 27.2 Anion Gap 7 Blood Urea Nitrogen 28 Creatinine 2.34 Estimat Glomerular Filtration 30 Rate Random Glucose 114 Calcium Level 8.2 Date/Time Procedure Status Source Growth 12/27/16 23:50 Stool Occult Blood (ROSA) - Final Complete Stool Stool HEMOCCULT NEGATIVE Mandy Palmer MD December 29, 2016 18:28
[2016-12-29 20:00] VITALS: BP 141/70; PULSE 92; RESP 16; TEMP 98.2; O2SAT 95
[2016-12-29] MEDS: traZODone HCL 100 MG TAB PO SCH (20:42)
[2016-12-29] MEDS: buPROPion HCL 75 MG TAB PO SCH (20:42)
[2016-12-30] VITALS (8 sets, daily range): BP systolic 127–169; BP diastolic 60–86; PULSE 76–90; RESP 16–20; TEMP 97.4–98.9; O2SAT 94–97
[2016-12-30] MEDS: hydrALAZINE HCL 25 MG TAB PO SCH ×4 (00:03→23:20)
[2016-12-30 05:41] LABS: BICARBONATE 27.4 MEQ/L (21.0-32.0)
[2016-12-30] MEDS: INSULIN ASPART SUPPLEMENTAL SCALE SQ SCH ×4 (05:52→21:00)
[2016-12-30] MEDS ORDERED: NEUR300C PO (10:00)
[2016-12-30] MEDS ORDERED: HYDR25TA35 PO (10:00)
[2016-12-30] MEDS ORDERED: AMLO10 PO (10:00)
[2016-12-30] MEDS ORDERED: FURO20TA PO (10:00)
[2016-12-30] MEDS ORDERED: BUPR75TA PO (10:00)
[2016-12-30] MEDS ORDERED: CARV3.125 PO (10:00)
--- NOTE | 2016-12-30 10:01 | HHI.DCPOC ---
Discharge Care Plan Diagnosis: (1) Acute on chronic renal insufficiency (2) Type 1 diabetes mellitus (3) Hypertension (4) Bipolar disorder (5) Benzodiazepine withdrawal Goals to Promote Your Health * To prevent worsening of your condition and complications * To maintain your health at the optimal level Directions to Meet Your Goals Take your medications as prescribed Follow your dietary instruction Follow activity as directed Keep your appointments as scheduled Take your immunizations and boosters as scheduled If your symptoms worsen call your PCP, if no PCP go to Urgent Care Center or Emergency Room Smoking is Dangerous to Your Health. Avoid second hand smoke Call the 24-hour hour crisis hotline for domestic abuse at Maggie Blankenship MD December 30, 2016 10:01
[2016-12-30] MEDS: CARVEDILOL 3.125 MG TAB PO SCH ×2 (10:22→20:31)
[2016-12-30] MEDS: FUROSEMIDE 20 MG TAB PO SCH (10:22)
[2016-12-30] MEDS: buPROPion HCL 75 MG TAB PO SCH ×2 (10:23→20:31)
[2016-12-30] MEDS: ACETAMINOPHEN 325 MG TAB PO PRN (10:23)
[2016-12-30] MEDS: GABAPENTIN 300 MG CAP PO SCH ×2 (10:23→20:31)
[2016-12-30] MEDS: SODIUM CHLORIDE 0.9% FLUSH 10 ML FLUSH IV FLUSH SCH ×2 (10:24→20:31)
[2016-12-30] MEDS ORDERED: SODIUM CHLOR 0.9% 250 ML INJ 250 ML IV ONE (11:15)
[2016-12-30] MEDS ORDERED: ACETAMINOPHEN 325 MG TAB PO PRN (11:15)
--- NOTE | 2016-12-30 11:48 | MB ---
cc: ALICE PITT M.D. DATE OF CONSULTATION: 12/30/2016 REASON FOR CONSULTATION: Consult requested by hospitalist for evaluation of normocytic normochromic anemia. HISTORY OF PRESENT ILLNESS This is a 51-year-old male. He lives in the [place] area, he says that he usually goes to [facility] in [place] however, he was at [facility]. They did the blood tests and they found his potassium to be high and also creatinine was high too. The patient was referred to the emergency room. The patient is awake, Tapia acted. The patient is now admitted to the hospital. Nephrology have been consulted. I have been asked to see the patient for the anemia. The patient is not aware of the anemia. However, he states that he has been having kidney problems for the last year or so. However he has not seen any shells inspector. He has a history of type 1 diabetes mellitus and also hypertension. The patient has been complaining of weakness, tiredness, fatigue, dyspnea on exertion. He denies any blood in the stool. REVIEW OF SYSTEMS The rest of the review of systems is negative. PAST MEDICAL HISTORY Diabetes mellitus type 1 Hypertension Coronary artery disease status post CA Bipolar disorder. Depression. PAST SURGICAL HISTORY: Left elbow surgery for MRSA infection Left foot surgery Cataract. ALLERGIES None. MEDICATIONS: Medications prior to coming to the hospital; 1. Lorazepam 2. Gabapentin 3. Trazodone 4. Divalproex acid 5. Losartan 6. Bupropion 7. Insulin FAMILY HISTORY The patient is adopted does not know about his family history. SOCIAL HISTORY The patient is , lives with his does not drink alcohol. He smokes cigarettes one pack a day and claims that he recently stopped. PHYSICAL EXAMINATION: IN GENERAL: Physical examination is a well-developed, well-nourished white male in no apparent distress. VITAL SIGNS: Temperature 98.7, heart rate is 90, blood pressure 169/82, O2 saturation 96%. HEAD, EYES, EARS, NOSE, AND THROAT: Pupils equal, round, reactive to light and accommodation, extraocular muscles intact. anicteric. No oral lesions are noted. NECK: Neck is supple. There is no cervical, supraclavicular or axillary lymphadenopathy noted. LUNGS: The lungs are clear. No wheezing, rhonchi or rales. HEART: The heart is a regular rate and rhythm. ABDOMEN: The abdomen is soft, nontender. No hepatosplenomegaly. EXTREMITIES: No pedal edema. NEUROLOGIC: Neurology awake, alert, oriented times three. SKIN: No significant lesions are noted. ASSESSMENT 1. Normocytic normochromic anemia. This is most likely due to anemia of chronic kidney disease. 2. Chronic kidney disease with a GFR of 28 and a creatinine of 2.47. 3. Diabetes mellitus 4. Hypertension 5. Bipolar disorder. PLAN I have reviewed his available records and I have discussed with the patient regarding his anemia. The patient was not aware of that he is anemic. However, he is quite symptomatic. He is complaining of weakness, tiredness, fatigue with dyspnea on exertion. His CBC on admission December 26 showed an white count five, hemoglobin 8.4 Hct 24.4, platelet count is 206. His hemoglobin two days ago dropped to 7.6 and hematocrit 21.2. The rest of the CBC is normal. The differential count is normal. The patient has normocytic normochromic anemia. He had the iron studies, the serum iron is 117, TIBC is low at 230 and saturation is 51 and serum ferritin is 95. He does not have any iron deficiency. I will check the B12, folate and serum erythropoietin level as well. Hepatitis B and C antibodies are negative. The serum CALVIN does not show any monoclonal gammopathy. The IgG is low at 614, IgA is normal at 183, IgM is normal at 99. Lindon light chain is 176, lambda light chain is 107. There are three kappa lambda light chain is a still pending. Complement is C3 is low at 75. Complement C4 is normal. KATE is negative. There is no evidence of multiple myeloma or monoclonal gammopathy noted. Most likely the cause of the kidney failure is nephrosclerosis from diabetes mellitus and hypertension. Most likely the patient has diabetic nephropathy as he already has diabetic retinopathy and neuropathy. We discussed that he should see a associate veterinarian for Procrit for his anemia of chronic renal failure. He lives in the [place] area and his Primary care physician can refer him to a local associate veterinarian for the Procrit injections. If the patient wants he can come to the office for his Procrit for his anemia of renal failure. The patient is symptomatic from the anemia and his hemoglobin has dropped to 7.6 and my recommendation is 2 units of blood transfusion. Further recommendations based on his hospital stay. Thank you for asking my opinion. MD FELICIA Reyes/abel /11:10 AM /11:31 AM LANA
--- NOTE | 2016-12-30 18:03 | HHI.PR ---
Subjective Remarks Follow-up for multiple complaints listed in the assessment and plan Patient stated that tremors has resolved. He denied any chest pain, shortness of breathing, lightheadedness or dizziness. Headache has improved. Deny any focal neurological deficits. Objective Vitals Vital Signs Date Time Temp Pulse Resp B/P Pulse Ox O2 Delivery O2 Flow Rate FiO2 12/30/16 16:59 98.7 76 16 127/60 97 12/30/16 16:00 98.5 80 18 136/68 96 12/30/16 15:00 98.7 76 16 127/60 97 12/30/16 12:00 98.9 79 16 159/75 94 12/30/16 08:00 98.7 90 18 169/82 96 12/30/16 00:00 97.4 80 16 136/60 97 12/29/16 20:00 98.2 92 16 141/70 95 I/O 12/29/16 12/29/16 12/29/16 12/30/16 12/30/16 12/30/16 07:00 15:00 23:00 07:00 15:00 23:00 Intake Total 360 ml 240 ml 1320 ml Output Total 500 ml 600 ml Balance -140 ml -360 ml 1320 ml Intake Oral 360 ml 240 ml 1320 ml Output Urine Total 500 ml 600 ml # Voids 3 # Bowel Movements 0 0 2 Result Diagram: 12/28/16 0500 12/30/16 0355 Objective Remarks GENERAL: in NAD CARDIOVASCULAR: Regular rate and rhythm without murmurs, gallops, or rubs. RESPIRATORY: Breath sounds equal bilaterally. No accessory muscle use. GASTROINTESTINAL: Abdomen soft, non-tender, nondistended. MUSCULOSKELETAL: No cyanosis, or edema. BACK: Nontender without obvious deformity. No CVA tenderness. NEURO: AAO X 3. CN 2-12 intact. no r/m/g. No tremors noted. Medications and IVs Current Medications Sodium Chloride (NS 1000 ml Inj) 1,000 ml @ 999 mls/hr BOLUS ONCE IV Last administered on 12/26/16 17:00; Start 12/26/16 at 16:30; Stop 12/26/16 at 17:30; Status DC Insulin Human Regular (NovoLIN R INJ) 10 units ONCE ONCE IV PUSH Last administered on 12/26/16 18:28; Start 12/26/16 at 18:00; Stop 12/26/16 at 18:01; Status DC Dextrose (D50w (Vial) Inj) 50 ml ONCE ONCE IV PUSH Last administered on 18:24; Start 12/26/16 at 17:45; Stop 12/26/16 at 17:46; Status DC Sodium Bicarbonate (Sodium Bicarbonate 8.4% Inj) 50 meq ONCE ONCE SLOW IVP ; Start 12/26/16 at 17:45; Stop 12/26/16 at 17:46; Status DC Sodium Polystyrene Sulfonate (Kayexalate Liq) 15 gm ONCE ONCE PO Last administered on 12/26/16 18:33; Start 12/26/16 at 17:45; Stop 12/26/16 at 17:46; Status DC Sodium Bicarbonate 50 meq 50 meq ONCE ONCE IV PUSH Last administered on 18:34; Start 12/26/16 at 18:30; Stop 12/26/16 at 18:31; Status DC Sodium Chloride (NS 1000 ml Inj) 1,000 ml @ 100 mls/hr Q10H IV Last administered on 12/26/16 21:29; Start 12/26/16 at 19:33; Stop 12/27/16 at 05:32; Status DC Sodium Chloride (NS Flush) 2 ml UNSCH PRN IV FLUSH FLUSH AFTER USING IV ACCESS ; Start 12/26/16 at 19:45 Sodium Chloride (NS Flush) 2 ml BID IV FLUSH Last administered on 12/30/16 10: 24; Start 12/26/16 at 21:00 Acetaminophen (Tylenol) 650 mg Q4H PRN PO TEMP > 100.4 Last administered on 10:23; Start 12/26/16 at 19:45 Ondansetron HCl (Zofran Inj) 4 mg Q6H PRN IVP NAUSEA OR VOMITING; Start at 19:45 Naloxone HCl (Narcan Inj) 0.4 mg UNSCH PRN IV SEE LABEL COMMENTS; Start at 19:45 Bupropion HCl (Wellbutrin) 100 mg BID PO Last administered on 12/29/16 08:11; Start 12/26/16 at 21:00; Stop 12/29/16 at 08:50; Status DC Divalproex Sodium (Depakote Er) 500 mg DAILY PO Last administered on 12/29/16 08:10; Start 12/27/16 at 09:00; Status Hold Gabapentin (Neurontin) 600 mg TID PO Last administered on 12/27/16 13:19; Start 12/27/16 at 09:00; Stop 12/27/16 at 14:09; Status DC Lorazepam (Ativan) 1 mg Q8H PRN PO ANXIETY Last administered on 12/28/16 19:58 ; Start 12/26/16 at 20:45 Trazodone HCl (Desyrel) 300 mg HS PO Last administered on 12/29/16 20:42; Start 12/26/16 at 21:00 Dextrose (D50w (Vial) Inj) 25 ml UNSCH PRN IV PUSH HYPOGLYCEMIA-SEE COMMENTS; Start 12/26/16 at 21:00 Glucagon (Glucagon Inj) 1 mg UNSCH PRN OTHER HYPOGLYCEMIA-SEE COMMENTS; Start 12/26/16 at 21:00 Insulin Aspart (NovoLOG SUPPLEMENTAL SCALE) 1 ACHS SLIDING SCALE SQ Last administered on 12/29/16 20:56; Start 12/26/16 at 21:00 Sodium Polystyrene Sulfonate (Kayexalate Liq) 15 gm ONCE ONCE PO Last administered on 12/27/16 10:34; Start 12/27/16 at 09:45; Stop 12/27/16 at 09:46; Status DC Amlodipine Besylate (Norvasc) 10 mg DAILY PO Last administered on 12/30/16 10: 22; Start 12/27/16 at 11:15 Gabapentin (Neurontin) 300 mg BID PO Last administered on 12/30/16 10:23; Start 12/27/16 at 21:00 Sodium Polystyrene Sulfonate (Kayexalate Liq) 15 gm ONCE ONCE PO Last administered on 12/28/16 08:45; Start 12/28/16 at 08:45; Stop 12/28/16 at 08:46 ; Status DC Amlodipine Besylate (Norvasc) 5 mg DAILY PO Last administered on 12/28/16 11: 51; Start 12/28/16 at 11:00; Stop 12/28/16 at 16:55; Status DC Furosemide (Lasix) 10 mg DAILY PO Last administered on 12/30/16 10:22; Start 12/29/16 at 09:00 Carvedilol (Coreg) 3.125 mg Q12HR PO Last administered on 12/30/16 10:22; Start 12/28/16 at 21:00 Miscellaneous (Pill Splitter) 1 ea UNSCH PRN OTHER SEE LABEL COMMENTS; Start at 17:00 Labetalol HCl (Trandate Inj) 10 mg Q4H PRN IV PUSH SYS BP GREATER THAN 180 MMHG ; Start 12/29/16 at 08:30 Hydralazine HCl (Apresoline) 25 mg Q8H PO Last administered on 12/30/16 17:01 ; Start 12/29/16 at 09:00 Bupropion HCl 75 mg 75 mg Q12HR PO Last administered on 12/30/16 10:23; Start 12/29/16 at 21:00 Sodium Chloride (NS 250 ml Inj) 250 ml @ 15 mls/hr ONCE ONCE IV Last administered on 12/30/16 17:06; Start 12/30/16 at 11:15; Stop 12/31/16 at 03:54 Acetaminophen (Tylenol) 650 mg Q4H PRN PO SEE LABEL COMMENTS; Start 12/30/16 at 11:15; Stop 12/30/16 at 15:16; Status DC A/P Problem List: (1) Hyperkalemia ICD Code: E87.5 Status: Acute Assessment and Plan The patient is a 51-year-old male with a past medical history which includes hypertension, diabetes mellitus, bipolar with depression. Patient is on Depakote as well as gabapentin reports he takes these for his bipolar not for seizure disorder. Patient presents to the emergency department today from [facility] for evaluation of elevated potassium and elevated creatine. Patient reports while he was in the hospital possibly 2 weeks ago they , "almost," had to start dialysis secondary to Anuria x 2 days. Patient reports he was first told that he had, "kidney issues," 6 months to a year ago. Initial laboratory data reviewed potassium 5.8 BUN 52 creatinine 2.98, estimated GFR 22, hemoglobin 8.4 with hematocrit 24.4 Acute kidney injury versus chronic kidney disease -Patient was given IV fluids in which creatinine improved. -Mixer Operator Vacuum Pan Salt consulted and stated this is most likely diabetic and hypertensive nephropathy. -Avoid nephrotoxins. -would benefits from ASHLEIGH/ARB but prone to hyperkalemia. -For the last 2 days his potassium has been stable and did not require any Kayexalate. -Per associate professor of library science he needs to see a associate professor of library science as outpatient. Anemia -hemoccult negative and iron studies does not suggest iron def anemia. -Fabric Coating Supervisor consulted and stated that anemia secondary to chronic kidney disease. -Recommend a transfusion today. Also started patient on Procrit. -Anemia has been stable throughout the hospital course. LORENZANA -maybe due to uncontrol hypertension. -no red flags noted. -Improved with Tylenol Hyperkalemia -s/p sodium bicarbonate, insulin as well as Kayexalate emergency department. -Throughout the hospital course he was given multiple doses of Kayexalate with improvement of potassium. Hypertension Urgency -Losartan was held secondary to kidney disease. -maybe exacerbated by his LORENZANA. -Blood pressure is now controlled with amlodipine and hydralazine. -add labetolol PRN. Bipolar - home regimen include divalproex, gabapentin, trazodone and bupropion -bupropion dose decrease. Will restart Depakote. Diabetes mellitus -Currently on insulin sliding scale. Chronic tremors -Neurologist ff and appreciate recommendations, stated initially maybe due to patient's psych meds in the setting of renal failure. -Psychiatrist consulted and stated that tremors are due to benzo withdrawal. -Tremors have resolved. DVT prophylaxis with heparin and SCDs Discharge Planning If patient continues term is stable tomorrow he can be discharged to home. per case management Agnes saunders has been clear by Colin Cazares and the court stating that patient can go home. Maggie Blankenship MD December 30, 2016 18:03
[2016-12-30] MEDS: traZODone HCL 100 MG TAB PO SCH (20:31)
[2016-12-30] MEDS: DIVALPROEX SODIUM E.R. 500 MG TAB PO SCH (20:31)
[2016-12-30 23:52] LABS: KAPPA/LAMBDA FREE 1.79 (0.26-1.65)
[2016-12-31] VITALS: BP 151/86; PULSE 77; RESP 20; TEMP 99.4; O2SAT 96
[2016-12-31 04:00] VITALS: BP 159/87; PULSE 83; RESP 20; TEMP 98.1; O2SAT 95
[2016-12-31] MEDS: INSULIN ASPART SUPPLEMENTAL SCALE SQ SCH ×3 (06:19→16:00)
[2016-12-31 07:07] LABS: HEMATOCRIT 27.9 % (39.0-51.0); MEAN CELL VOLUME 87.5 FL (80.0-100.0); MEAN CORPUSCULAR HEMOGLOBIN 31.3 PG (27.0-34.0); MEAN CORPUSCULAR HGB CONC 35.8 % (32.0-36.0); PLATELET COUNT 169 TH/MM3 (150-450); RED BLOOD COUNT 3.19 MIL/MM3 (4.50-5.90); RED CELL DISTRIBUTION WIDTH 14.7 % (11.6-17.2); REVIEW FLAG FINAL; WHITE BLOOD COUNT 5.3 TH/MM3 (4.0-11.0)
[2016-12-31 07:48] LABS: BICARBONATE 24.8 MEQ/L (21.0-32.0); POTASSIUM 4.5 MEQ/L (3.5-5.1)
[2016-12-31 08:00] VITALS: BP 163/79; PULSE 82; RESP 16; TEMP 98.2; O2SAT 93
[2016-12-31] MEDS: DIVALPROEX SODIUM E.R. 500 MG TAB PO SCH (08:19)
[2016-12-31] MEDS: GABAPENTIN 300 MG CAP PO SCH (08:19)
[2016-12-31] MEDS: hydrALAZINE HCL 25 MG TAB PO SCH ×2 (08:19→16:41)
[2016-12-31] MEDS: CARVEDILOL 3.125 MG TAB PO SCH (08:19)
[2016-12-31] MEDS: buPROPion HCL 75 MG TAB PO SCH (08:19)
[2016-12-31] MEDS: FUROSEMIDE 20 MG TAB PO SCH (08:20)
[2016-12-31] MEDS: SODIUM CHLORIDE 0.9% FLUSH 10 ML FLUSH IV FLUSH SCH (09:00)
[2016-12-31 12:00] VITALS: BP 127/58; PULSE 81; RESP 18; TEMP 98.3; O2SAT 94
--- NOTE | 2016-12-31 13:43 | HHI.PR ---
Subjective Remarks Follow-up hyperkalemia/acute on chronic kidney disease/anemia of chronic disease 12/31/16-patient seen and examined, denies any chest pain or shortness of breath. States he is feeling stronger now. Patient stated he has no ride back to [place] Objective Vitals Vital Signs Date Time Temp Pulse Resp B/P Pulse Ox O2 Delivery O2 Flow Rate FiO2 12/31/16 12:00 98.3 81 18 127/58 94 12/31/16 08:00 98.2 82 16 163/79 93 12/31/16 04:00 98.1 83 20 159/87 95 12/31/16 00:00 99.4 77 20 151/86 96 12/30/16 20:00 98.1 87 20 169/86 96 12/30/16 19:24 87 12/30/16 16:59 98.7 76 16 127/60 97 12/30/16 16:00 98.5 80 18 136/68 96 12/30/16 15:00 98.7 76 16 127/60 97 I/O 12/30/16 12/30/16 12/30/16 12/31/16 12/31/16 12/31/16 07:00 15:00 23:00 07:00 15:00 23:00 Intake Total 240 ml 1320 ml 1489 ml 720 ml Output Total 600 ml 250 ml 400 ml Balance -360 ml 1320 ml 1239 ml 320 ml Intake Oral 240 ml 1320 ml 960 ml 720 ml Packed Cells 529 ml Output Urine Total 600 ml 250 ml 400 ml # Bowel Movements 0 2 Result Diagram: 12/31/16 0650 12/31/16 0650 Imaging Last Impressions Renal Ultrasound 12/26/16 0000 Signed Impressions: Service Date/Time: Monday, December 26, 2016 23:09 - CONCLUSION: Normal examination. Eddie Salguero Jr., MD Objective Remarks GENERAL: NAD SKIN: Warm and dry. HEAD: Normocephalic. EYES: No scleral icterus. No injection or drainage. NECK: Supple, trachea midline. No JVD or lymphadenopathy. CARDIOVASCULAR: Regular rate and rhythm without murmurs, gallops, or rubs. RESPIRATORY: Breath sounds equal bilaterally. No accessory muscle use. GASTROINTESTINAL: Abdomen soft, non-tender, nondistended. MUSCULOSKELETAL: No cyanosis, or edema. BACK: Nontender without obvious deformity. No CVA tenderness. A/P Problem List: (1) Hyperkalemia ICD Code: E87.5 Status: Acute (2) Acute on chronic renal insufficiency ICD Code: N28.9 Status: Acute (3) CKD (chronic kidney disease) stage 4, GFR 15-29 ml/min ICD Code: N18.4 Status: Acute (4) Vitamin D deficiency ICD Code: E55.9 Status: Acute (5) Proteinuria ICD Code: R80.9 Status: Acute (6) Hypertension ICD Code: I10 Status: Acute (7) Bipolar disorder ICD Code: F31.9 Status: Acute (8) Type 1 diabetes mellitus ICD Code: E10.9 Status: Acute (9) Anemia in chronic kidney disease ICD Code: N18.9 Status: Acute Assessment and Plan 51-year-old man with Acute kidney injury versus chronic kidney disease -Daub Color Mixer consulted and stated this is most likely diabetic and hypertensive nephropathy. -Avoid nephrotoxins. -would benefits from ASHLEIGH/ARB but prone to hyperkalemia. -Per technical business analyst he needs to see a technical business analyst as outpatient. Anemia of chronic kidney disease -hemoccult negative and iron studies does not suggest iron def anemia. -Continuous Improvement Black Belt consulted and stated that anemia secondary to chronic kidney disease.patient started on Procrit. Will need outpatient follow-up with hematology LORENZANA -maybe due to uncontrol hypertension. -no red flags noted. -Improved with Tylenol Hyperkalemia -s/p sodium bicarbonate, insulin as well as Kayexalate emergency department. -s/p multiple doses of Kayexalate with improvement of potassium. Hypertension Urgency -Losartan was held secondary to kidney disease. -Now controlled with amlodipine and hydralazine. Bipolar - home regimen include divalproex, gabapentin, trazodone and bupropion -bupropion dose decrease. Continue Depakote. -Appreciate input from psychiatry Diabetes mellitus -Currently on insulin sliding scale. Chronic tremors -Neurologist ff and appreciate recommendations, stated initially maybe due to patient's psych meds in the setting of renal failure. -Psychiatrist consulted and stated that tremors are due to benzo withdrawal. -Tremors have resolved. DVT prophylaxis with heparin and SCDs Jt Melton MD December 31, 2016 13:43
--- NOTE | 2016-12-31 13:45 | HHI.DS ---
Discharge Summary Admission Date December 26, 2016 at 18:06 Discharge Date: December 31, 2016 Admitting Diagnosis hyperkalemia, chronic kidney disease (1) Hyperkalemia ICD Code: E87.5 (2) Acute on chronic renal insufficiency ICD Code: N28.9 (3) CKD (chronic kidney disease) stage 4, GFR 15-29 ml/min ICD Code: N18.4 (4) Vitamin D deficiency ICD Code: E55.9 (5) Proteinuria ICD Code: R80.9 (6) Hypertension ICD Code: I10 (7) Bipolar disorder ICD Code: F31.9 (8) Type 1 diabetes mellitus ICD Code: E10.9 (9) Anemia in chronic kidney disease ICD Code: N18.9 Procedures none Brief History - From Admission The patient is a 51-year-old male with a past medical history which includes hypertension, diabetes mellitus, bipolar with depression. Patient is on Depakote as well as gabapentin reports he takes these for his bipolar not for seizure disorder. Patient presents to the emergency department today from [facility] for evaluation of elevated potassium and elevated creatine. Patient reports he was recently discharged from [facility] to [facility] secondary to a court order that his had instituted, secondary to him taking one of her morphine tablets. The patient has been at [facility] when they performed laboratory evaluation and noted his elevated potassium and creatinine. Patient reports while he was in the hospital possibly 2 weeks ago they, "almost," had to start dialysis secondary to Anuria x 2 days. Patient reports he was first told that he had, "kidney issues," 6 months to a year ago. Patient also reports bilateral lower extremity edema for the past 6 months. Patient reports he has not been followed by an outpatient spreader operator automatic. [facility] [place] does not [facility] the [facility]. Only new medications reported are Wellbutrin and Xanax. The patient denies any current cramping, myalgias, arthralgias, nausea, vomiting, abdominal pain palpitations, chest pain or shortness of breath. EKG reviewed and reveals sinus rhythm 71 bpm. Initial laboratory data reviewed potassium 5.8 BUN 52 creatinine 2.98, estimated GFR 22, hemoglobin 8.4 with hematocrit 24.4 CBC/BMP: 12/31/16 0650 12/31/16 0650 Significant Findings Laboratory Tests Test 12/29/16 12/30/16 12/31/16 07:45 03:55 06:50 Chloride Level 110 MEQ/L 109 MEQ/L 110 MEQ/L (98-107) (98-107) (98-107) Blood Urea Nitrogen 28 MG/DL (7-18) 28 MG/DL (7-18) 33 MG/DL (7-18) Creatinine 2.34 MG/DL 2.47 MG/DL 2.59 MG/DL (0.60-1.30) (0.60-1.30) (0.60-1.30) Estimat Glomerular Filtration 30 ML/MIN (>89) 28 ML/MIN (>89) 26 ML/MIN (>89) Rate Random Glucose 114 MG/DL (74-106) Calcium Level 8.2 MG/DL 7.7 MG/DL 7.6 MG/DL (8.5-10.1) (8.5-10.1) (8.5-10.1) Red Blood Count 3.19 MIL/MM3 (4.50-5.90) Hemoglobin 10.0 GM/DL (13.0-17.0) Hematocrit 27.9 % (39.0-51.0) Imaging Last Impressions Renal Ultrasound 12/26/16 0000 Signed Impressions: Service Date/Time: Monday, December 26, 2016 23:09 - CONCLUSION: Normal examination. Eddie Salguero Jr., MD PE at Discharge GENERAL: NAD SKIN: Warm and dry. HEAD: Normocephalic. EYES: No scleral icterus. No injection or drainage. NECK: Supple, trachea midline. No JVD or lymphadenopathy. CARDIOVASCULAR: Regular rate and rhythm without murmurs, gallops, or rubs. RESPIRATORY: Breath sounds equal bilaterally. No accessory muscle use. GASTROINTESTINAL: Abdomen soft, non-tender, nondistended. MUSCULOSKELETAL: No cyanosis, or edema. BACK: Nontender without obvious deformity. No CVA tenderness. Hospital Course Acute kidney injury versus chronic kidney disease -Military Analyst consulted and stated this is most likely diabetic and hypertensive nephropathy. -Avoid nephrotoxins. -would benefits from ASHLEIGH/ARB but prone to hyperkalemia. -Per spreader operator automatic he needs to see a spreader operator automatic as outpatient. Anemia of chronic kidney disease -hemoccult negative and iron studies does not suggest iron def anemia. -Collection Correspondent consulted and stated that anemia secondary to chronic kidney disease.patient started on Procrit. Will need outpatient follow-up with hematology LORENZANA -maybe due to uncontrol hypertension. -no red flags noted. -Improved with Tylenol Hyperkalemia -s/p sodium bicarbonate, insulin as well as Kayexalate emergency department. -s/p multiple doses of Kayexalate with improvement of potassium. Hypertension Urgency -Losartan was held secondary to kidney disease. -Now controlled with amlodipine and hydralazine. Bipolar - home regimen include divalproex, gabapentin, trazodone and bupropion -bupropion dose decreased. Continue Depakote. -Appreciated input from psychiatry Diabetes mellitus -Currently on insulin sliding scale. Chronic tremors -Neurologist ff and appreciate recommendations, stated initially maybe due to patient's psych meds in the setting of renal failure. -Psychiatrist consulted and stated that tremors are due to benzo withdrawal. -Tremors have resolved. DVT prophylaxis with heparin and SCDs Pt Condition on Discharge: Stable Discharge Disposition: Discharge Home Discharge Time: > 30 minutes Discharge Instructions DIET: Follow Instructions for: Diabetic Diet Follow up Referrals: Nephrology - 2 Weeks PCP Follow-up - 1 Week New Medications: Amlodipine (Norvasc) 10 Mg Tab 10 MG PO DAILY hypertension #30 Ref 0 TAB Bupropion HCl (Bupropion HCl) 75 Mg Tab 75 MG PO Q12HR anxiety #60 Ref 0 TAB Carvedilol (Coreg) 3.125 Mg Tab 3.125 MG PO Q12HR hypertension #30 Ref 0 TAB Furosemide (Furosemide) 20 Mg Tab 10 MG PO DAILY voulme overloaded #15 Ref 0 TAB Gabapentin (Neurontin) 300 Mg Cap 300 MG PO BID neuropathy #60 Ref 0 CAP Hydralazine (Hydralazine) 25 Mg Tab 25 MG PO Q8H hypertension #90 Ref 0 TAB Continued Medications: Divalproex ER (Divalproex ER) 500 Mg Tab 500 MG PO DAILY Control Seizures #30 Ref 0 TAB Lorazepam (Lorazepam) 1 Mg Tab 1 MG PO Q8H PRN ANXIETY Ref 0 TAB Trazodone (Trazodone) 300 Mg Tab 300 MG PO HS Control Depression #30 Ref 0 TAB Discontinued Medications: Bupropion HCl (Bupropion HCl) 100 Mg Tab 100 MG PO BID Control Depression Ref 0 TAB Gabapentin (Gabapentin) 600 Mg Tab 1200 MG PO TID #90 Ref 0 TAB Losartan (Losartan) 25 Mg Tab 25 MG PO DAILY Blood Pressure Management #30 Ref 0 TAB Additional Information I spent over 30 minutes for discharge of patient Jt Melton MD December 31, 2016 13:45
[2016-12-31 16:00] VITALS: BP 158/82; PULSE 87; RESP 18; TEMP 97.8; O2SAT 95
== END 2016-12-31 17:42 | disposition home or self-care (01) | DRG 682 ==
LOC: NEPE 16:12 → NEDA 18:06 → OBSVTOIN 18:06 → NEPGCP 21:45 → N07A 12-29 17:29
PROVIDERS: ADMIT Hospitalist; ATTEND Hospitalist
PROC: 30233N1 Transfusion of Nonautologous Red Blood Cells into Peripheral Vein, Percutaneous Approach (ICD-10-PCS; principal; 2016-12-30)
DX: N17.9 Acute kidney failure, unspecified (principal); G93.41 Metabolic encephalopathy; E10.40 Type 1 diabetes mellitus with diabetic neuropathy, unspecified; E10.22 Type 1 diabetes mellitus with diabetic chronic kidney disease; E55.9 Vitamin D deficiency, unspecified; E87.5 Hyperkalemia; F17.210 Nicotine dependence, cigarettes, uncomplicated; F12.90 Cannabis use, unspecified, uncomplicated; F31.9 Bipolar disorder, unspecified; E10.319 Type 1 diabetes mellitus with unspecified diabetic retinopathy without macular edema; E86.0 Dehydration; I25.10 Atherosclerotic heart disease of native coronary artery without angina pectoris; F41.9 Anxiety disorder, unspecified; D63.1 Anemia in chronic kidney disease; I16.0 Hypertensive urgency; I12.9 Hypertensive chronic kidney disease with stage 1 through stage 4 chronic kidney disease, or unspecified chronic kidney disease; N18.4 Chronic kidney disease, stage 4 (severe); Z91.19 Patient's noncompliance with other medical treatment and regimen; Z79.4 Long term (current) use of insulin
CPT/HCPCS: 36430; 76775; 76937; 80048; 80053; 80069; 80164; 81001; 82272; 82306; 82570; 82607; 82668; 82728; 82746; 82784; 82948; 83540; 83550; 83735; 83883; 83970; 84132; 84156; 84165; 85025; 85027; 86038; 86160; 86334; 86803; 86850; 86900; 86901; 86920; 87205; 87340; 87641; 93005; 93306; 96360; J1815; J7030; J7050; P9016

== ENCOUNTER 2017-04-26 20:57 | Inpatient (IN) | payer OTHER ==
[~2017-04-26 20:57] MED LIST: AMLO10 PO; BUPR75TA PO; CARV3.125 PO; DIVA500T3 PO; FURO20TA PO; HYDR25TA35 PO; LORA1TAB12 PO; NEUR300C PO; TRAZ300T2 PO
[2017-04-26 20:59] VITALS: BP 189/93; PULSE 28; PULSE 98; RESP 18; TEMP 99.4; O2SAT 96
[2017-04-26 21:29] VITALS: BP 236/118; PULSE 99; RESP 24; O2SAT 100
[2017-04-26] MEDS ORDERED: ONDANSETRON HCL 4 MG/2 ML VIAL IV ONE (21:45)
[2017-04-26] MEDS ORDERED: LABETALOL HCL 100 MG/20 ML VIAL IV PUSH ONE (21:45)
[2017-04-26] MEDS ORDERED: fentaNYL CITRATE 250 MCG/5 ML AMP IV PUSH ONE (21:45)
[2017-04-26] MEDS ORDERED: SODIUM CHLORID 0.9% 500 ML INJ 500 ML IV ONE (21:45)
--- NOTE | 2017-04-26 21:53 | PD ---
HPI Chief Complaint: Headache Time Seen by Provider: 21:24 Travel History International Travel<30 days: No Contact w/Intl Traveler<30days: No Traveled to known affect area: No History of Present Illness HPI The patient is a 51 year old male who presents to the [facility] emergency department with a history of generalized headache that he reports began 14 days ago. He reports that he's been in skilled nursing for the last 14 days. He reports that he was released today. The patient has a history of hypertension, diabetes, and bipolar disorder, and he reports that the only medical that he was provided during his skilled nursing time was lisinopril for his blood pressure. The patient reports that he was given an aspirin for his headache. The patient reports that he immediately came to the emergency department for evaluation and treatment. The patient reports that he has a history of renal failure and is in preparations to start on dialysis through a sequins winder in [place] at the [facility]. He reports concern that his potassium may be high. The patient reports that 3-4 hours ago he did experience a numbness in the right arm that resolved after 20 minutes. He denies having any weakness of his extremities associated with this. Does have chronic numbness of bilateral feet related to diabetic neuropathy. He reports that he does not take anything for his diabetes. He reports that his last implement A1c was normal by using dietary measures for his diabetes. On review of systems, the patient denies having any known fevers, congestion, however he has been experiencing a mild dry cough. He denies having any neck pain, chest pain, shortness of breath, abdominal pain, vomiting, or diarrhea. The patient reports that he last urinated a light yellow urine 2 hours ago. He denies any change in his urinary frequency or dysuria. The patient denies having any facial droop, slurred speech, difficulty with word finding ability, dizziness, one-sided weakness, or vision changes. [facility] Past Medical History Narrative Medical the patient's past medical history is significant for diabetes mellitus, hypertension, bipolar disorder, according to the electronic medical record, history of medication noncompliance, history of chronic tremors for the last approximately 8 months, history of tobacco abuse, and prior marijuana use. He denies using any marijuana prior to his emergency department visit today and he also reports that he has not smoked his usual pack of cigarettes per day for the last 2 weeks while he was in skilled nursing. Asthma: Yes Blood Disorders: No Anxiety: Yes Depression: Yes Heart Rhythm Problems: No Cancer: No Cardiovascular Problems: Yes (mi) High Cholesterol: Yes Chemotherapy: No Chest Pain: No Congestive Heart Failure: No COPD: No Cerebrovascular Accident: No Diabetes: Yes Patient Takes Glucophage: No Endocrine: Yes Genitourinary: No Hypertension: Yes Immune Disorder: No Musculoskeletal: Yes Neurologic: No Psychiatric: Yes Respiratory: Yes Migraines: No Radiation Therapy: No Renal Failure: Yes Seizures: No Sleep Apnea: Yes Thyroid Disease: No Past Surgical History Narrative Surgical The patient's past surgical history is significant for left elbow surgery, right foot surgery, bilateral cataract surgery. Eye Surgery: Yes (bila cataract) Other Surgery: Yes (L elbow bilat cataract ) Social History Alcohol Use: No Tobacco Use: Yes (1 pk a day) Substance Use: Yes (xanax/ morphine/marijuana) Allergies-Medications (Allergen,Severity, Reaction): Coded Allergies: Penicillins (Verified Allergy, Severe, 04/26/17) Reported Meds & Prescriptions Reported Meds & Active Scripts Active Neurontin (Gabapentin) 300 Mg Cap 300 Mg PO BID Furosemide 20 Mg Tab 10 Mg PO DAILY Coreg (Carvedilol) 3.125 Mg Tab 3.125 Mg PO Q12HR Bupropion HCl 75 Mg Tab 75 Mg PO Q12HR Norvasc (Amlodipine Besylate) 10 Mg Tab 10 Mg PO DAILY Reported Lorazepam 1 Mg Tab 1 Mg PO Q8H PRN Trazodone (Trazodone HCl) 300 Mg Tab 300 Mg PO HS Divalproex ER (Divalproex Sodium) 500 Mg Tab 500 Mg PO DAILY Review of Systems Except as stated in HPI: all other systems reviewed are Neg General / Constitutional: No: Fever Eyes: No: Visual changes HENT: Positive: Headaches, No: Congestion, Neck Stiffness, Neck Pain Cardiovascular: No: Chest Pain or Discomfort Respiratory: Positive: Cough, No: Shortness of Breath Gastrointestinal: No: Nausea, Vomiting, Diarrhea, Abdominal Pain, Changes in Bowel Habits Genitourinary: No: Dysuria Musculoskeletal: No: Pain Skin: No Rash Neurologic: Positive: Tremor, Headache, Sensory Disturbance (in the right arm for 20 minutes earlier today), No: Weakness, Focal Abnormalities, Change in Mentation, Slurred Speech Psychiatric: No: Depression Endocrine: No: Polydipsia Hematologic/Lymphatic: No: Easy Bruising Physical Exam Narrative General: The patient is a well-developed, thin appearing male in no acute distress. Head and Neck exam: Head is normocephalic atraumatic. Eyes: EOMI, pupils are equal round and reactive to light. Nose: Midline septum with pink mucous membranes Mouth: Dentition unremarkable. Moist mucus membranes. Posterior oropharynx is not erythematous. No tonsillar hypertrophy. Uvula midline. Airway patent. Neck: No palpable lymphadenopathy. No nuchal rigidity. No thyromegaly. No spinous process tenderness to palpation. No step-off or crepitus. No erythema or ecchymosis. Negative Brudzinski, negative Kernig sign. Cardiovascular: Sinus tachycardia in the low 100s without murmurs, gallops, or rubs. No pulse deficit to the extremities and simultaneous auscultation and palpation of his radial artery. Lungs: Clear to auscultation bilaterally. No wheezes, rhonchi, or rales. Abdomen: Soft, without tenderness to palpation in all 4 quadrants of the abdomen. No guarding, rebound, or rigidity. Normal bowel sounds are audible. No tenderness on palpation of McBurney's point. Extremities: No clubbing, cyanosis, or edema. 2+ pulses in all 4 extremities. No calf tenderness on palpation. Back: No costovertebral angle tenderness to palpation. Neurologic Exam: Cranial nerves 2-12 were intact on exam. Strength is 5/5 in all 4 extremities. No sensory deficits noted, except for chronic numbness of bilateral feet that he reports is related to his diabetic neuropathy. Skin Exam: No rash noted. Intact skin that is warm and dry. Data Data Last Documented VS Vital Signs Date Time Temp Pulse Resp B/P (MAP) Pulse Ox O2 Delivery O2 Flow Rate FiO2 04/26/17 23:17 84 197/95 04/26/17 22:58 16 100 Room Air 04/26/17 20:59 99.4 Orders Orders Electrocardiogram (04/26/17 21:35) Complete Blood Count With Diff (04/26/17 21:35) Comprehensive Metabolic Panel (04/26/17 21:35) Creatine Kinase (Cpk) (04/26/17 21:35) Ckmb (Isoenzyme) Profile (04/26/17 21:35) Troponin I (04/26/17 21:35) B-Type Natriuretic Peptide (04/26/17 21:35) Prothrombin Time / Inr (Pt) (04/26/17 21:35) Act Partial Throm Time (Ptt) (04/26/17 21:35) Blood Culture (04/26/17 21:35) Urinalysis - C+S If Indicated (04/26/17 21:35) Magnesium (Mg) (04/26/17 21:35) Chest, Single Ap (04/26/17 21:35) Ct Brain W/O Iv Contrast(Rout) (04/26/17 21:35) Iv Access Insert/Monitor (04/26/17 21:35) Ecg Monitoring (04/26/17 21:35) Oximetry (04/26/17 21:35) Drug Screen, Random Urine (04/26/17 21:35) Alcohol (Ethanol) (04/26/17 21:35) Salicylates (Aspirin) (04/26/17 21:35) Tylenol (Acetaminophen) (04/26/17 21:35) Lactic Acid Sepsis Protocol (04/26/17 21:35) Sodium Chlorid 0.9% 500 Ml Inj (Ns 500 M (04/26/17 21:45) Labetalol Inj (Trandate Inj) (04/26/17 21:45) Fentanyl Inj (Fentanyl Inj) (04/26/17 21:45) Ondansetron Inj (Zofran Inj) (04/26/17 21:45) Fentanyl Inj (Fentanyl Inj) (04/26/17 21:53) CKMB (04/26/17 21:40) CKMB% (04/26/17 21:40) Nicardipine Inj (Cardene Inj) (04/26/17 23:00) Admit Order (Ed Use Only) (04/26/17 23:22) Labs Laboratory Tests Test 04/26/17 21:40 04/26/17 21:45 White Blood Count 5.9 TH/MM3 Red Blood Count 3.49 MIL/MM3 Hemoglobin 10.8 GM/DL Hematocrit 31.1 % Mean Corpuscular Volume 89.1 FL Mean Corpuscular Hemoglobin 31.0 PG Mean Corpuscular Hemoglobin Concent 34.8 % Red Cell Distribution Width 14.1 % Platelet Count 228 TH/MM3 Mean Platelet Volume 7.9 FL Neutrophils (%) (Auto) 76.7 % Lymphocytes (%) (Auto) 16.0 % Monocytes (%) (Auto) 5.9 % Eosinophils (%) (Auto) 0.4 % Basophils (%) (Auto) 1.0 % Neutrophils # (Auto) 4.5 TH/MM3 Lymphocytes # (Auto) 0.9 TH/MM3 Monocytes # (Auto) 0.3 TH/MM3 Eosinophils # (Auto) 0.0 TH/MM3 Basophils # (Auto) 0.1 TH/MM3 CBC Comment DIFF FINAL Differential Comment Prothrombin Time 10.3 SEC Prothromb Time International Ratio 0.9 RATIO Activated Partial Thromboplast Time 24.6 SEC Blood Urea Nitrogen 49 MG/DL Creatinine 3.85 MG/DL Random Glucose 161 MG/DL Total Protein 6.5 GM/DL Albumin 3.3 GM/DL Calcium Level 8.3 MG/DL Magnesium Level 2.2 MG/DL Alkaline Phosphatase 77 U/L Aspartate Amino Transf (AST/SGOT) 28 U/L Alanine Aminotransferase (ALT/SGPT) 36 U/L Total Bilirubin 0.4 MG/DL Sodium Level 135 MEQ/L Potassium Level 4.8 MEQ/L Chloride Level 102 MEQ/L Carbon Dioxide Level 21.2 MEQ/L Anion Gap 12 MEQ/L Estimat Glomerular Filtration Rate 17 ML/MIN Total Creatine Kinase 475 U/L Creatine Kinase MB 8.0 NG/ML Creatine Kinase MB % 1.7 % Troponin I 0.03 NG/ML B-Type Natriuretic Peptide 56 PG/ML Salicylates Level 4.1 MG/DL Acetaminophen Level LESS THAN 2.0 MCG/ML Ethyl Alcohol Level LESS THAN 3 MG/DL Lactic Acid Level 1.6 mmol/L [facility] Medical Decision Making Medical Screen Exam Complete: Yes Emergency Medical Condition: Yes Medical Record Reviewed: Yes Differential Diagnosis Intracranial hemorrhage, versus intracranial mass, versus headache related to poorly controlled hypertension, versus anabolic encephalopathy, versus acute sinusitis Narrative Course During the course of the patients emergency department visit, the patients history, examination, and differential diagnosis were reviewed with the patient. The patient had IV access obtained and blood work sent for analysis. The patient states on a night monitor with oximetry and blood pressure monitoring. An ECG was done on arrival. The patient's ECG shows a sinus rhythm heart rate of 94, no acute ST segment elevation, the patient is noted to have Q waves in lead 3. QRS duration is 100 ms, QTc is [address] scan of the brain was ordered, chest x-ray was ordered. The patient was initially provided fentanyl 50 g IV 1 for pain, Zofran 4 mg IV for nausea. The patient's blood pressure on arrival is 236/118. The patient was given labetalol 10 mg IV 1. The patient will be reassessed and 15 minutes. On patient's reevaluation of his blood pressure, it briefly came down and then went back up again. The patient's heart rate did come down to 96. The patient will be started on a Cardene drip to lower his blood pressure by approximately 20% as I am concerned that this is contributing to his headache. The patients laboratory studies were reviewed and remarkable for a white count of 5.9, hemoglobin 10.8, platelets 228 with 76.7 neutrophils, CMP is remarkable for sodium of 135, BUN 49, creatinine 3.85, glucose 161, CPK 475, MB percent 1.7 , troponin I 0.03, albumin 3.3, BNP 56, PT 10.3, PTT 24.6 Radiology studies were reviewed and remarkable for a chest x-ray that showed no acute cardiopulmonary disease, CT scan of the brain showed no acute abnormality. The patient will be admitted to the hospital for continued evaluation and treatment, the patient will be continued on a Cardene drip while by mouth medications are reinstituted for better blood pressure control. The patient is noted to have acute on chronic renal failure. The patients results were discussed with the patient, including the plan of care. I explained that further testing and/ or monitoring is indicated based on the patients history, examination, and/ or laboratory findings. Therefore, I recommended admission for additional evaluation. The patient expressed understanding and was agreeable with this plan. The patient was admitted to the hospital in guarded condition and [facility] Physician Communication Physician Communication The patient's case is discussed with Dr. Coe who did agree to admit the patient for further evaluation and treatment at this time. Diagnosis Primary Impression: Hypertensive urgency Additional Impression: Acute on chronic renal failure Qualified Codes: N17.9 - Acute kidney failure, unspecified; N18.9 - Chronic kidney disease, unspecified Admitting Information Admitting Physician Requests: Bety Parsons MD Apr 26, 2017 21:53
--- NOTE | 2017-04-26 22:08 | RADRPT ---
EXAM DATE/TIME: 04/26/2017 21:52 [facility] COMPARISON: No previous studies available for comparison. INDICATIONS : Cephalgia. RADIATION DOSE: 56.77 CTDIvol (mGy) MEDICAL HISTORY : Hypertension. Mesenteric ischemia. Diabetes. Renal failure. SURGICAL HISTORY : None. ENCOUNTER: Initial ACUITY: 2 weeks PAIN SCALE: 10/10 LOCATION: cranial TECHNIQUE: Multiple contiguous axial images were obtained of the head. Using automated exposure control and adj ustment of the mA and/or kV according to patient size, radiation dose was kept as low as reasonably a chievable to obtain optimal diagnostic quality images. DICOM format image data is available electro nically for review and comparison. FINDINGS: CEREBRUM: The ventricles are normal for age. No evidence of midline shift, mass lesion, hemorrhage or acute in farction. No extra-axial fluid collections are seen. POSTERIOR FOSSA: The cerebellum and brainstem are intact. The 4th ventricle is midline. The cerebellopontine angle i s unremarkable. EXTRACRANIAL: The visualized portion of the orbits is intact. SKULL: The calvaria is intact. No evidence of skull fracture. CONCLUSION: Normal examination for a patient of this age. Magdi Arevalo MD on April 26, 2017 at 22:05 Board Certified Radiologist. This report was verified electronically.
[2017-04-26 22:13] VITALS: BP 211/94; PULSE 84; RESP 22; O2SAT 100
[2017-04-26 22:13] LABS: AUTOMATED NEUTROPHIL # 4.5 TH/MM3 (1.8-7.7); BASOPHIL # 0.1 TH/MM3 (0-0.2); EOSINOPHIL % 0.4 % (0.0-4.0); HEMATOCRIT 31.1 % (39.0-51.0); HEMO FLAGS DIFF FINAL; LYMPHOCYTE # 0.9 TH/MM3 (1.0-4.8); MEAN CELL VOLUME 89.1 FL (80.0-100.0); MEAN CORPUSCULAR HGB CONC 34.8 % (32.0-36.0); MONO % 5.9 % (0.0-8.0); NEUT % 76.7 % (16.0-70.0); PLATELET COUNT 228 TH/MM3 (150-450); RED BLOOD COUNT 3.49 MIL/MM3 (4.50-5.90); RED CELL DISTRIBUTION WIDTH 14.1 % (11.6-17.2); WHITE BLOOD COUNT 5.9 TH/MM3 (4.0-11.0)
[2017-04-26 22:30] LABS: ANION GAP 12 MEQ/L (5-15); BICARBONATE 21.2 MEQ/L (21.0-32.0); BLOOD UREA NITROGEN 49 MG/DL (7-18); CHLORIDE 102 MEQ/L (98-107); GLOMERULAR FILTRATION RATE 17 ML/MIN (>89); MAGNESIUM 2.2 MG/DL (1.5-2.5); POTASSIUM 4.8 MEQ/L (3.5-5.1); SODIUM (NA) 135 MEQ/L (136-145)
[2017-04-26 22:31] LABS: ALT (GPT) 36 U/L (12-78); APTT (PATIENT) 24.6 SEC (24.3-30.1); AST (GOT) 28 U/L (15-37); INTERNATIONAL NORMALIZED RATIO 0.9 RATIO; PROTHROMBIN TIME - PATIENT 10.3 SEC (9.8-11.6)
[2017-04-26 22:34] LABS: ACETAMINOPHEN LESS THAN 2.0 MCG/ML (10.0-30.0); ALKALINE PHOSPHATASE 77 U/L (45-117); CREATINE KINASE 475 U/L (39-308); TOTAL BILIRUBIN ADULT 0.4 MG/DL (0.2-1.0)
[2017-04-26 22:35] LABS: ALCOHOL LESS THAN 3 MG/DL (0-5)
--- NOTE | 2017-04-26 22:39 | RADRPT ---
EXAM DATE/TIME: 04/26/2017 22:08 [facility] COMPARISON: No previous studies available for comparison. INDICATIONS : Headache and right side numbness for 2 weeks. MEDICAL HISTORY : Hypertension. Myocardial infarction. Diabetes mellitus type II. Renal failure. SURGICAL HISTORY : None. ENCOUNTER: Initial ACUITY: 2 weeks PAIN SCORE: 0/10 LOCATION: Bilateral chest FINDINGS: A single view of the chest demonstrates the lungs to be symmetrically aerated without evidence of mas s, infiltrate or effusion. The cardiomediastinal contours are unremarkable. Osseous structures are intact. CONCLUSION: No acute disease. Magdi Arevalo MD on April 26, 2017 at 22:37 Board Certified Radiologist. This report was verified electronically.
[2017-04-26 22:58] VITALS: BP 190/104; PULSE 85; RESP 16; O2SAT 100
[2017-04-26] MEDS ORDERED: niCARdipine INJ 25 MG in SODIUM CHLOR 0.9% 250 ML INJ 250 ML IV PRN (23:00)
[2017-04-26 23:32] VITALS: BP 160/80; PULSE 80; RESP 18; O2SAT 100
[2017-04-26] MEDS ORDERED: NALOXONE HCL 0.4 MG/ML AMP IV PRN (23:45)
[2017-04-26] MEDS ORDERED: LABETALOL HCL 100 MG/20 ML VIAL IV PUSH PRN (23:45)
[2017-04-26] MEDS ORDERED: hydrALAZINE HCL 20 MG/ML VIAL IV PUSH PRN (23:45)
[2017-04-26] MEDS ORDERED: SODIUM CHLORIDE 0.9% FLUSH 10 ML FLUSH IV FLUSH PRN (23:45)
[2017-04-26 23:47] VITALS: BP 152/81; PULSE 88; RESP 18; O2SAT 100
[2017-04-27] VITALS (20 sets, daily range): BP systolic 136–191; BP diastolic 69–89; PULSE 72–92; RESP 16–22; TEMP 98.2–98.9; O2SAT 98–100
--- NOTE | 2017-04-27 02:32 | HHI.HP ---
HPI Service [facility] Primary Care Physician [facility] Admission Diagnosis hypertensive urgency, acute on chronic renal failure Diagnoses: (1) Hypertensive urgency Chief Complaint: headache for two weeks Travel History International Travel<30 Days: No Contact w/Intl Traveler <30 Da: No Traveled to Known Affected Are: No History of Present Illness Written by Sue Lake, acting as scribe for Dr. Coe on 04/27/17 at 02:32. The patient reports he has had a headache for the past 2 weeks; has been off of his blood pressure medications for 2 weeks while he was detained in [facility] ( released yesterday). Headache is posterior without fever, diarrhea, abdominal pain, vomiting, chest pain, or syncope. He reports right sided upper extremity weakness for a couple of minutes but was self-limited. The [facility]. Review of Systems Except as stated in HPI: all other systems reviewed are Neg Past Family Social History Past Medical History Hypertension Diabetes SD PE Seizure x 1 Anxiety Asthma Chronic Kidney Disease Denies CHF, atrial fibrillation, liver problems, DVT, CVA, thyroid problems, cancer Past Surgical History Left elbow surgery Bilateral cataract surgery . Reported Medications Reported Meds & Active Scripts Active Neurontin (Gabapentin) 300 Mg Cap 300 Mg PO BID Furosemide 20 Mg Tab 10 Mg PO DAILY Coreg (Carvedilol) 3.125 Mg Tab 3.125 Mg PO Q12HR Bupropion HCl 75 Mg Tab 75 Mg PO Q12HR Norvasc (Amlodipine Besylate) 10 Mg Tab 10 Mg PO DAILY Reported Lorazepam 1 Mg Tab 1 Mg PO Q8H PRN Trazodone (Trazodone HCl) 300 Mg Tab 300 Mg PO HS Divalproex ER (Divalproex Sodium) 500 Mg Tab 500 Mg PO DAILY . Allergies: Coded Allergies: Penicillins (Verified Allergy, Severe, 04/26/17) Active Ordered Medications Current Medications Sodium Chloride 500 ml @ 500 mls/hr BOLUS ONCE IV Last administered on t 22:00; Start 04/26/17 at 21:45; Stop 04/26/17 at 22:44; Status DC Labetalol HCl (Trandate Inj) 10 mg ONCE ONCE IV PUSH Last administered on 22:16; Start 04/26/17 at 21:45; Stop 04/26/17 at 21:46; Status DC Fentanyl Citrate (fentaNYL INJ) 50 mcg ONCE ONCE IV PUSH Last administered on 04/26/17 22:00; Start 04/26/17 at 21:45; Stop 04/26/17 at 21:46; Status DC Ondansetron HCl (Zofran Inj) 4 mg ONCE ONCE IV Last administered on 04/26/17 22:16; Start 04/26/17 at 21:45; Stop 04/26/17 at 21:46; Status DC Fentanyl Citrate (fentaNYL INJ) 100 mcg [employer]-MED ONCE .ROUTE ; Start 04/26/17 at 21:53; Stop 04/26/17 at 21:54; Status DC Nicardipine HCl 25 mg/Sodium Chloride 260 ml @ 52 mls/hr TITRATE PRN IV Blood pressure management Last administered on 04/26/17 23:17; Start 04/26/17 at 23:00 ; Stop 04/26/17 at 23:40; Status DC Sodium Chloride (NS Flush) 2 ml UNSCH PRN IV FLUSH FLUSH AFTER USING IV ACCESS ; Start 04/26/17 at 23:45 Sodium Chloride (NS Flush) 2 ml BID IV FLUSH ; Start 04/27/17 at 09:00 Naloxone HCl (Narcan Inj) 0.4 mg UNSCH PRN IV SEE LABEL COMMENTS; Start at 23:45 Hydralazine HCl (Apresoline Inj) 10 mg Q30M PRN IV PUSH bp>180/90; Start at 23:45 Labetalol HCl (Trandate Inj) 10 mg Q20M PRN IV PUSH bp>180/90; Start 04/26/17 at 23:45 . Family History adopted - doesn't know family history . Social History Tobacco: smokes cigarettes 1 PPD Alcohol: denies Illicit Drugs: morphine, marijuana . Physical Exam Vital Signs Vital Signs Date Time Temp Pulse Resp B/P (MAP) Pulse Ox O2 Delivery O2 Flow Rate FiO2 04/27/17 00:17 92 16 149/76 (100) 100 Room Air 04/27/17 00:02 92 16 155/81 (105) 100 Room Air 04/26/17 23:47 88 18 152/81 (104) 100 Room Air 04/26/17 23:32 80 18 160/80 (106) 100 Room Air 04/26/17 23:17 84 197/95 04/26/17 22:58 85 16 190/104 (132) 100 Room Air 04/26/17 22:13 84 22 211/94 (133) 100 Room Air 04/26/17 21:29 99 24 236/118 (157) 100 Room Air 04/26/17 20:59 99.4 98 18 189/93 (125) 96 Room Air Physical Exam GENERAL: This is a pale, male patient, in no apparent distress. SKIN: No rashes. Cool and dry. HEAD: Atraumatic. Normocephalic. EYES: No scleral icterus. No injection or drainage. ENT: Nose without bleeding, purulent drainage. NECK: Trachea midline. No JVD. CARDIOVASCULAR: Regular rate and rhythm without murmurs, gallops, or rubs. RESPIRATORY: Clear to auscultation. Breath sounds equal bilaterally. No wheezes , rales, or rhonchi. GASTROINTESTINAL: Abdomen soft, non-tender, nondistended. MUSCULOSKELETAL: Extremities without clubbing, cyanosis, or edema. No calf tenderness. NEUROLOGICAL: Awake and alert. Motor and sensory grossly within normal limits. Normal speech. Laboratory Laboratory Tests Test 04/26/17 21:40 04/26/17 21:45 White Blood Count 5.9 Red Blood Count 3.49 Hemoglobin 10.8 Hematocrit 31.1 Mean Corpuscular Volume 89.1 Mean Corpuscular Hemoglobin 31.0 Mean Corpuscular Hemoglobin Concent 34.8 Red Cell Distribution Width 14.1 Platelet Count 228 Mean Platelet Volume 7.9 Neutrophils (%) (Auto) 76.7 Lymphocytes (%) (Auto) 16.0 Monocytes (%) (Auto) 5.9 Eosinophils (%) (Auto) 0.4 Basophils (%) (Auto) 1.0 Neutrophils # (Auto) 4.5 Lymphocytes # (Auto) 0.9 Monocytes # (Auto) 0.3 Eosinophils # (Auto) 0.0 Basophils # (Auto) 0.1 CBC Comment DIFF FINAL Differential Comment Prothrombin Time 10.3 Prothromb Time International Ratio 0.9 Activated Partial Thromboplast Time 24.6 Blood Urea Nitrogen 49 Creatinine 3.85 Random Glucose 161 Total Protein 6.5 Albumin 3.3 Calcium Level 8.3 Magnesium Level 2.2 Alkaline Phosphatase 77 Aspartate Amino Transf (AST/SGOT) 28 Alanine Aminotransferase (ALT/SGPT) 36 Total Bilirubin 0.4 Sodium Level 135 Potassium Level 4.8 Chloride Level 102 Carbon Dioxide Level 21.2 Anion Gap 12 Estimat Glomerular Filtration Rate 17 Total Creatine Kinase 475 Creatine Kinase MB 8.0 Creatine Kinase MB % 1.7 Troponin I 0.03 B-Type Natriuretic Peptide 56 Salicylates Level 4.1 Acetaminophen Level LESS THAN 2.0 Ethyl Alcohol Level LESS THAN 3 Lactic Acid Level 1.6 Date/Time Source Procedure Growth Status 04/26/17 21:45 Blood Peripheral Aerobic Blood Culture Pending Received 04/26/17 21:45 Blood Peripheral Anaerobic Blood Culture Pending Received Result Diagram: 04/26/17213904/26/172139 Imaging Last Impressions Head CT 04/26/172134 Signed Impressions: Service Date/Time: Wednesday, April 26, 2017 21:52 - CONCLUSION: Normal examination for a patient of this age. Magdi Arevalo MD Chest X-Ray 04/26/172134 Signed Impressions: Service Date/Time: Wednesday, April 26, 2017 22:08 - CONCLUSION: No acute disease. Magdi Arevalo MD . Capswatii VTE Risk Assessment Caprini VTE Risk Assessment: Mod/High Risk (score >= 2) Caprini Risk Assessment Model Point Value = 1 Point Value = 2 Point Value = 3 Point Value = 5 Age 41-60 Minor surgery BMI > 25 kg/m2 Swollen legs Varicose veins or History of unexplained or recurrent spontaneous Oral contraceptives or hormone replacement Sepsis (< 1 month) Serious lung disease, including pneumonia (< 1 month) Abnormal pulmonary function Acute myocardial infarction Congestive heart failure (< 1 month) History of inflammatory bowel disease Medical patient at bed rest Age 61-74 Arthroscopic surgery Major open surgery (> 45 min) Laparoscopic surgery (> 45 min) Malignancy Confined to bed (> 72 hours) Immobilizing plaster cast Central venous access Age >= 75 History of VTE Family history of VTE Factor V Leiden Prothrombin [id number] Lupus anticoagulant Anticardiolipin antibodies Elevated serum homocysteine Heparin-induced thrombocytopenia Other congenital or acquired thrombophilia Stroke (< 1 month) Elective arthroplasty Hip, pelvis, or leg fracture Acute spinal cord injury (< 1 month) Prophylaxis Regimen Total Risk Factor Score Risk Level Prophylaxis Regimen 0-1 Low Early ambulation 2 Moderate Order ONE of the following: *Sequential Compression Device (SCD) *Heparin 5000 units SQ BID 3-4 Higher Order ONE of the following medications: *Heparin 5000 units SQ TID *Enoxaparin/Lovenox 40 mg SQ daily (WT < 150 kg, CrCl > 30 mL/min) *Enoxaparin/Lovenox 30 mg SQ daily (WT < 150 kg, CrCl > 10-29 mL/min) *Enoxaparin/Lovenox 30 mg SQ BID (WT < 150 kg, CrCl > 30 mL/min) AND/OR *Sequential Compression Device (SCD) 5 or more Highest Order ONE of the following medications: *Heparin 5000 units SQ TID (Preferred with Epidurals) *Enoxaparin/Lovenox 40 mg SQ daily (WT < 150 kg, CrCl > 30 mL/min) *Enoxaparin/Lovenox 30 mg SQ daily (WT < 150 kg, CrCl > 10-29 mL/min) *Enoxaparin/Lovenox 30 mg SQ BID (WT < 150 kg, CrCl > 30 mL/min) AND *Sequential Compression Device (SCD) Assessment and Plan Problem List: (1) Hypertensive urgency ICD Code: I16.0 - Hypertensive urgency Status: Acute (2) Acute on chronic renal failure ICD Code: N17.9 - Acute kidney failure, unspecified; N18.9 - Chronic kidney disease, unspecified Status: Acute Assessment and Plan 51 y/o male who was off home bp medications for two weeks who presented to hospital with hypertensive urgency. Hypertensive Urgency - BP 236/118 shortly after admission - Hydralazine IV PRN - Labetalol IV PRN - resume Coreg 3.125 mg BID p.o. and Amlodipine 10 mg p.o. qday - monitor trends in blood pressure readings and adjust treatment as indicated Acute on chronic renal failure - likely secondary to dehydration and poorly controlled bp - repeat bmp in a.m. - follow trends in renal indices - avoid nephrotoxins DVT prophylaxis - SCDs/TEDs . This note was transcribed by mary [Sue Lake]. I, Dr. Shelton Coe personally performed the history, physical exam, and medical decision making; and confirmed the accuracy of the information in the transcribed note. Authenticated by Dr. Shelton Coe on 04/27/17 at 02:32. Discussed Condition With ER physician and patient . Physician Certification 2 Midnight Certification Type: Admission for Inpatient Services Order for Inpatient Services The services are ordered in accordance with Medicare regulations or non- Medicare payer requirements, as applicable. In the case of services not specified as inpatient-only, they are appropriately provided as inpatient services in accordance with the 2-midnight benchmark. Estimated LOS (days): 2 days is the estimated time the patient will need to remain in the hospital, assuming treatment plan goals are met and no additional complications. Post-Hospital Plan: Not yet determined Problem Qualifiers (1) Acute on chronic renal failure: Qualified Codes: N17.9 - Acute kidney failure, unspecified; N18.9 - Chronic kidney disease, unspecified Sue Lake Apr 27, 2017 02:32 Shelton Coe MD Apr 27, 2017 07:30
[2017-04-27] MEDS ORDERED: LORazepam 1 MG TAB PO PRN (02:45)
[2017-04-27] MEDS ORDERED: PILL SPLITTER OTHER PRN (03:00)
[2017-04-27 06:41] LABS: AUTOMATED NEUTROPHIL # 2.5 TH/MM3 (1.8-7.7); BASOPHIL % 0.8 % (0.0-2.0); EOSINOPHIL # 0.1 TH/MM3 (0-0.4); EOSINOPHIL % 1.6 % (0.0-4.0); HEMATOCRIT 25.4 % (39.0-51.0); HEMO FLAGS DIFF FINAL; LYMPH % 33.9 % (9.0-44.0); LYMPHOCYTE # 1.5 TH/MM3 (1.0-4.8); MEAN CELL VOLUME 88.8 FL (80.0-100.0); MEAN CORPUSCULAR HEMOGLOBIN 31.7 PG (27.0-34.0); MEAN CORPUSCULAR HGB CONC 35.6 % (32.0-36.0); MONO % 8.4 % (0.0-8.0); NEUT % 55.3 % (16.0-70.0); PLATELET COUNT 180 TH/MM3 (150-450); RED BLOOD COUNT 2.86 MIL/MM3 (4.50-5.90); RED CELL DISTRIBUTION WIDTH 13.8 % (11.6-17.2); WHITE BLOOD COUNT 4.6 TH/MM3 (4.0-11.0)
[2017-04-27 07:34] LABS: BICARBONATE 25.3 MEQ/L (21.0-32.0); POTASSIUM 4.4 MEQ/L (3.5-5.1)
[2017-04-27] MEDS ORDERED: GABAPENTIN 300 MG CAP PO SCH (09:00)
[2017-04-27] MEDS ORDERED: FUROSEMIDE 20 MG TAB PO SCH (09:00)
[2017-04-27] MEDS ORDERED: DIVALPROEX SODIUM E.R. 500 MG TAB PO SCH (09:00)
[2017-04-27] MEDS ORDERED: CARVEDILOL 3.125 MG TAB PO SCH (09:00)
[2017-04-27] MEDS ORDERED: buPROPion HCL 75 MG TAB PO SCH (09:00)
[2017-04-27] MEDS ORDERED: SODIUM CHLORIDE 0.9% FLUSH 10 ML FLUSH IV FLUSH SCH (09:00)
[2017-04-27] MEDS: SODIUM CHLOR 0.9% 1000 ML INJ 1,000 ML IV SCH ×2 (10:56→16:40)
[2017-04-27] MEDS ORDERED: CARVEDILOL 3.125 MG TAB PO ONE (11:00)
[2017-04-27] MEDS ORDERED: ACETAMINOPHEN 325 MG TAB PO PRN (11:45)
--- NOTE | 2017-04-27 12:49 | EKG ---
Date Performed: 04/26/2017 Time Performed: 21:29:47 PTAGE: 51 years EKG: Sinus rhythm POSSIBLE INFERIOR MYOCARDIAL INFARCTION BORDERLINE ECG INTERPRETATION BASED ON A DEFAULT AGE OF 40 Y EARS NO PREVIOUS TRACING DOCTOR: Lai Alvarado Interpretating Date/Time 04/27/2017 12:45:18
--- NOTE | 2017-04-27 14:57 | HHI.PR ---
Subjective Remarks f/u HTN and ARF Patient better, but with mild headache, no chest pain or SOB. Good UO Objective Vitals Vital Signs Date Time Temp Pulse Resp B/P (MAP) Pulse Ox O2 Delivery O2 Flow Rate FiO2 04/27/17 12:04 83 04/27/17 11:00 84 22 191/89 (123) 100 04/27/17 11:00 85 04/27/17 10:00 74 04/27/17 09:00 76 04/27/17 08:00 74 04/27/17 07:15 98.9 74 20 156/82 (106) 98 04/27/17 07:15 72 04/27/17 06:00 72 04/27/17 05:00 78 04/27/17 04:00 82 04/27/17 03:07 82 04/27/17 03:00 98.2 86 20 151/88 (109) 99 04/27/17 02:37 86 16 136/69 (91) 99 04/27/17 00:17 92 16 149/76 (100) 100 Room Air 04/27/17 00:02 92 16 155/81 (105) 100 Room Air 04/26/17 23:47 88 18 152/81 (104) 100 Room Air 04/26/17 23:32 80 18 160/80 (106) 100 Room Air 04/26/17 23:17 84 197/95 04/26/17 22:58 85 16 190/104 (132) 100 Room Air 04/26/17 22:13 84 22 211/94 (133) 100 Room Air 04/26/17 21:29 99 24 236/118 (157) 100 Room Air 04/26/17 20:59 99.4 98 18 189/93 (125) 96 Room Air I/O 04/26/17 04/26/17 04/26/17 04/27/17 04/27/17 04/27/17 06:59 14:59 22:59 06:59 14:59 22:59 Intake Total 782 ml Output Total 700 ml Balance 82 ml Intake Oral 252 ml IV Total 530 ml Output Urine Total 700 ml # Bowel Movements 0 Result Diagram: 04/27/17 0620 04/27/17 0620 Objective Remarks Not in distress, well-nourished, looks stated age Normal rate and regular rhythm, no murmurs gallops or rubs appreciated. Clear to auscultation and symmetric bilaterally, normal respiratory effort. Normal bowel sounds, soft, non-tender, nondistended, no guarding. Extremities without clubbing, cyanosis, or edema. No rash of generalized distribution. Skin is warm and dry. AAO x3, no cranial nerve deficits, moves all 4 extremities, no focal neurologic deficits A/P Problem List: (1) Hypertensive urgency ICD Code: I16.0 - Hypertensive urgency Status: Acute (2) Acute on chronic renal failure ICD Code: N17.9 - Acute kidney failure, unspecified; N18.9 - Chronic kidney disease, unspecified Status: Acute Assessment and Plan 51 y/o male who was off home bp medications for two weeks who presented to hospital with hypertensive urgency. Hypertensive Urgency-blood pressure still elevated, increase Coreg, continue Norvasc, also start hydralazine orally, continue labetalol and hydralazine as needed. CT head negative. Acute on chronic renal failure - likely secondary to dehydration and poorly controlled bp, creatinine better but not back to baseline. Restart IVF. If creatinine back to baseline which is around 2.5, may go home, recheck BMP at 3 PM. Good urine output, check ultrasound of the kidneys. History of diabetes-allegedly normal hemoglobin A1c 2 months ago, recheck hemoglobin A1c, start sliding scale insulin. DVT prophylaxis - SCDs/TEDs . Problem Qualifiers (1) Acute on chronic renal failure: Qualified Codes: N17.9 - Acute kidney failure, unspecified; N18.9 - Chronic kidney disease, unspecified Michael Tomlinson MD Apr 27, 2017 14:57
[2017-04-27] MEDS ORDERED: hydrALAZINE HCL 25 MG TAB PO SCH (15:00)
[2017-04-27] MEDS ORDERED: INSULIN ASPART SUPPLEMENTAL SCALE SQ SCH (16:00)
[2017-04-27 17:20] LABS: POTASSIUM 4.5 MEQ/L (3.5-5.1)
[2017-04-27] MEDS ORDERED: CARV6.25 PO (17:47)
[2017-04-27] MEDS ORDERED: HYDR-3799 PO (17:47)
--- NOTE | 2017-04-27 19:02 | RADRPT ---
EXAM DATE/TIME: 04/27/2017 17:40 [facility] COMPARISON: US KIDNEY/RENAL/BLADDER, December 26, 2016, 23:09. INDICATIONS : Abnormal labs. MEDICAL HISTORY : Hypercholesterolemia. Hypertension. Myocardial infarction. Asthma. Sleep apnea. Renal failure. Diabet es. Depression. Anxiety. Blood transfusions. Substance use. SURGICAL HISTORY : Bilateral cataract removal. Left elbow surgery. ENCOUNTER: Subsequent ACUITY: 1 day PAIN SCORE: 0/10 LOCATION: Bilateral flank MEASUREMENTS: RIGHT KIDNEY: 11.7 x 5.5 x 5.1 cm LEFT KIDNEY: 13.3 x 5.4 x 5.0 cm FINDINGS: RIGHT KIDNEY: Renal cortex is normal in thickness and echotexture. No hydronephrosis, stone, or mass. LEFT KIDNEY: Renal cortex is normal in thickness and echotexture. No hydronephrosis, stone, or mass. BLADDER: Within normal limits given the degree of distension. MISCELLANEOUS: Echogenic debris floating in the gallbladder lumen may represent some degree of sludge. No gallbladde r wall thickening or pericholecystic fluid. Spleen is prominent at 13 cm. CONCLUSION: 1. Both kidneys are sonographically intact. 2. Borderline splenomegaly. 3. Sonographic findings concerning for gallbladder sludge. Newton Mccullough MD on April 27, 2017 at 18:57 Board Certified Radiologist. This report was verified electronically.
[2017-04-27] MEDS ORDERED: CARVEDILOL 6.25 MG TAB PO SCH (21:00)
[2017-04-27] MEDS ORDERED: traZODone HCL 100 MG TAB PO SCH (21:00)
[2017-04-28 16:27] LABS: HEMOGLOBIN A1a 1.1 %; HEMOGLOBIN A1b 0.7 %; HEMOGLOBIN Ao 84.5 %; HEMOGLOBIN F 1.7 %; HEMOGLOBIN LA1C 1.7 %
--- NOTE | 2017-05-27 10:44 | PQ ---
Physician Query Response Document PATIENT: NAEL ROPER : 1965 ADMIT DATE: 04/26/2017 11:23 PM DISCH DATE: 04/27/2017 7:00 PM RESPONDING PROVIDER #: [email or web address] QUERY TEXT: Kidney Disease, Chronic CKD Stage Chronic Kidney Disease (CKD) is documented in the Medical Record. Please specify the disease stage ( includes probable or suspected) Such as: -- Chronic kidney disease Stage 1 -- Chronic kidney disease Stage 2 -- Chronic kidney disease Stage 3 -- Chronic kidney disease Stage 4 -- Chronic kidney disease Stage 5 -- Chronic kidney disease Stage 5, requiring dialysis -- End Stage Renal Disease -- Other, please specify Stages are defined by the [employer] as follows: CKD Stage I GFR >= 90 ml / min per 1.73 m2 and persistent albuminuria CKD Stage 2 GFR between 60 and 89 with persistent albuminuria CKD Stage 3 GFR between 30 and 59 CKD Stage 4 GFR between 15 and 29 CKD Stage 5 GFR between <15 or End Stage Renal Disease The patient's Clinical Indicators include: CHRONIC KIDNEY DISEASE, [facility] IND[facility] WILL EVENTUALLY BE ON HEMODIALYSIS-H HYPERTENSIVE URGENCY-H ACUTE ON CHRONIC RENAL FAILURE-H BUN/CREATININE- 04/27: 47/3.49, 43/3.13 GFR-04/27: 19, 21 Query created by: Pilar Graf on 04/28/2017 10:22 AM RESPONSE TEXT: CKD St. IV Electronically signed by: Michael Tomlinson MD 05/27/2017 10:39 AM
== END 2017-04-27 19:00 | disposition home or self-care (01) | DRG 683 ==
LOC: NEPC 20:57 → NEDA 23:23 → HCIS 04-27 02:55
PROVIDERS: ADMIT Hospitalist; ATTEND Hospitalist
DX: N17.9 Acute kidney failure, unspecified (principal); I13.0 Hypertensive heart and chronic kidney disease with heart failure and stage 1 through stage 4 chronic kidney disease, or unspecified chronic kidney disease; E11.22 Type 2 diabetes mellitus with diabetic chronic kidney disease; N18.4 Chronic kidney disease, stage 4 (severe); I16.0 Hypertensive urgency; E11.40 Type 2 diabetes mellitus with diabetic neuropathy, unspecified; E86.0 Dehydration; R25.1 Tremor, unspecified; G47.30 Sleep apnea, unspecified; F17.210 Nicotine dependence, cigarettes, uncomplicated; F41.9 Anxiety disorder, unspecified; F12.90 Cannabis use, unspecified, uncomplicated; F32.9 Major depressive disorder, single episode, unspecified; Z88.0 Allergy status to penicillin; Z91.14 Patient's other noncompliance with medication regimen
CPT/HCPCS: 70450; 71010; 76775; 76937; 80048; 80053; 80307; 82550; 82552; 82948; 83036; 83605; 83735; 83880; 84484; 85025; 85610; 85730; 87040; 93005; 96361; 96374; 96375; J2405; J3010; J7030; J7040; J7050